=== PATIENT | male | born 1940 | race Caucasian/White ===

== ENCOUNTER → 2017-11-06 | Outpatient (CLI) | payer OTHER, BC ==
[~2017-11-06] MED LIST: ADULT LOW DOSE81 MG PO; ASPIR 8181 MG PO; ATENOLOL 100MG100 MG PO; CARDIZEM CD180 MG PO; CELEXA10 MG PO; COUMADIN 5 MG TA5 M1 PO; COUMADIN 5 MG TA5 MG PO; COZAAR 25 MG TA25 M2 PO; DIGOXIN250 MCG PO; DILTIAZEM ER120 M1 PO; DILTIAZEM ER240 M1 PO; EFFIENT10 MG PO; GLUCOPHAGE500 MG PO; HYTRIN PO; KLOR-CON 1010 MEQ PO; LANOXIN 0.250.25 M1 PO; LASIX 40 MG TAB40 M2 PO; LIPITOR 20 MG T20 M1 PO; LOPRESSOR; LOPRESSOR100 MG; LOPRESSOR100 MG PO; METFORMIN 500500 MG PO; METOPROLOL TAR100 MG PO; OMEPRAZOLE20 MG PO; PRAVACHOL 20 MG20 M1 PO; PRILOSEC2.5 MG PO; PRILOSEC40 MG PO; TOPROL XL100 MG PO; XANAX 0.25 MG0.25 MG PO
--- NOTE | ~2017-11-06 | 2DMMODE ---
[facility] [address] [place] [address] 2 D/M-MODE ECHOCARDIOGRAM Name: ARYA BARROS Jonathan Room #: REG [facility]#: [id number] Admission: 11/06/17 Attend Phys: Luis Antonio Ace Discharge: Date of : 38 Date of Service: 11/06/17 1334 Report #: [id number] THIS REPORT FOR: //name// APPROVED REPORT Study performed: 11/06/2017 11:14:42 EXAM: Comprehensive 2D, Doppler, and color-flow Echocardiogram Patient Location: Out-Patient Room #: Echo lab 2 Status: routine BSA: 2.11 HR: 84 bpm BP: 104/76 mmHg Other Information Study Quality: Good Indications Atrial Fibrillation Pacemaker 2D Dimensions RVDd: 52.60 mm LVEF(%): 50.31 (>50%) IVSd: 10.73 (7-11mm) LVOT Diam: 22.33 (18-24mm) LVDd: 46.40 mm PWd: 10.44 (7-11mm) Ascending Ao: 29.03 (22-36mm) LVDs: 34.56 (25-40mm) Aortic Root: 29.15 mm IVC: 22.00 mm Kingsley's LVEF: 50.31 % Volumes Left Atrial Volume (Systole) Single Plane 4CH: 97.88 mL Single Plane 2CH: 93.87 mL LA ESV Index: 53.00 mL/m2 Aortic Valve AoV Peak Star.: 1.35 m/s AO Peak Gr.: 7.41 mmHg LVOT Max P.52 mmHg LVOT Max V: 0.61 m/s CHRISTEN Vmax: 1.77 cm2 Pulmonary Valve PV Peak Star.: 0.81 m/s PV Peak Gr.: 2.61 mmHg ND End Vmax: 1.24 m/s [facility] [employer] [place] [address] 2 D/M-MODE ECHOCARDIOGRAM Name: ARYA BARROS Room #: [facility]#: [id number] Admission: 11/06/17 Attend Phys: Luis [facility] Discharge: Date of : 38 Date of Service: 11/06/17 1334 Report #: [id number] Tricuspid Valve TR Peak Star.: 2.42 m/s TR Peak Gr.: 23.43 mmHg PA Pressure: 33.00 mmHg Left Ventricle The left ventricle is normal size. There is global hypokinesis of the left ventricle. There is normal left ventricular wall thickness. Left ventricular systolic function is moderately decreased. LVEF is 35%. This study is not technically sufficient to allow evaluation of the LV diastolic function due to atrial fibrillation. Right Ventricle Right ventricle is dilated. Right ventricular systolic function is mildly reduced. Device lead is present in the right ventricle. Atria Left atrium is dilated. Right atrium is dilated. Device lead is present in the right atrium. Aortic Valve Trileaflet aortic valve, mildly calcified No aortic regurgitation is present. There is no aortic valvular stenosis. Mitral Valve The mitral valve is normal in structure. Mild-moderate mitral regurgitation. Tricuspid Valve The tricuspid valve is normal in structure. There is moderate tricuspid regurgitation. Estimated PAP 33 mmHg. There is mild pulmonary hypertension. Pulmonic Valve The pulmonary valve is normal in structure. Mild pulmonic regurgitation. Great Vessels The aortic root is normal in size. IVC is dilated and collapses >50% with inspiration. Pericardium There is no pericardial effusion. <Conclusion> [facility] [address] [place] [address] 2 D/M-MODE ECHOCARDIOGRAM Name: ARYA BARROS Room #: [facility]#: [id number] Admission: 11/06/17 Attend Phys: Luis Antonio Ace Discharge: Date of : 38 Date of Service: 11/06/17 1334 Report #: [id number] Left ventricular systolic function is moderately decreased. LVEF is 35%. Right ventricle is dilated and hypokinetic. Both atria are dilated. Wires in right heart Trileaflet aortic valve, mildly calcified. No aortic regurgitation or stenosis The mitral valve is normal in structure. Mild-moderate mitral regurgitation. There is moderate tricuspid regurgitation. Estimated pulmonary artery pressure of 33 mmHg. There is no pericardial effusion. <ELECTRONICALLY SIGNED> By: Ramón Vu MD, FAC 11/06/17 1334 1334 1334 Ramón Vu MD, FAC /INF
== END ==
LOC: CV 06:45
DX: I08.1 Rheumatic disorders of both mitral and tricuspid valves (principal); I27.20 Pulmonary hypertension, unspecified; Z95.0 Presence of cardiac pacemaker

== ENCOUNTER 2017-11-15 06:41 | Observation (INO) | payer OTHER, BC ==
[~2017-11-15] VITALS: Ht 175.3 cm; Wt 99.3 kg
--- NOTE | ~2017-11-15 | P ---
[facility] [address] [place] [address] PROCEDURE REPORT Name: JOSE BARROS Room #: 201-P [facility] M.R.#: [id number] Admission: 11/15/17 Attend Phys: Luis Antonio Ace MD Discharge: 11/16/17 Date of : 38 Report #: [id number] THIS REPORT FOR: //name// CC: Tomas Ace PREOPERATIVE DIAGNOSIS: Nonischemic cardiomyopathy. PROCEDURES PERFORMED: Upgrade from a dual chamber pacemaker to a biventricular ICD with addition of an ICD lead in the left ventricular lead. HISTORY: The patient is a 77-year-old with history of permanent atrial fibrillation status post prior pacemaker implantation, who has a nonischemic cardiomyopathy, EF of 35% and class 2 heart failure symptoms, who will be upgraded to a biventricular ICD with plans of performing an AV node in the near future after he is healed from this procedure. ANESTHESIA: The patient underwent MAC anesthesia with no anesthesia related complications. DESCRIPTION OF PROCEDURE: The patient underwent informed consent. We discussed the details of the procedure including the risks, which include but not limited to bleeding, infection, vascular damage, cardiac perforation, pneumothorax. He understood these risks and is willing to proceed. As such, he was brought to the EP laboratory in fasting and unsedated state, prepped and draped in a sterile fashion, received IV antibiotics prior to initiation of the procedure and underwent a venogram showing patency of left axillary vein. Next, lidocaine was injected at the prior incision site. An incision was made, pocket was opened and then access was obtained twice to left axillary vein using the extrathoracic approach with sheaths positioned using the modified Seldinger technique. Under fluoroscopy, a single chamber ICD lead was placed in the right ventricular apex with adequate pacing and sensing thresholds and this lead was sutured to the prepectoral fascia. Next, I placed a guide sheath and obtained access to the coronary sinus. A venogram was performed showing that there is a nice posterolateral branch. A quadripolar lead was positioned into this vessel without complications. The sheath was split and lead was sutured to the prepectoral fascia. The old device was discarded and the leads were connected to the biventricular ICD. The new ICD that was implanted was a [employer] model #[id number], serial #[id number]. The old RV pace sense lead was capped and placed in the pocket. The pocket was irrigated with vancomycin and then closed in 3 layers and surgical glue was placed to the skin layer. The patient awoke neurologically and hemodynamically intact. No complications and no significant bleeding. The removed pacemaker was a Medtronic model RVDR01, serial #[id number]. The atrial lead was a Medtronic model #5076, serial # [id number]. This lead was implanted on 02/25/2008 and shows atrial fibrillation with a pacing impedance of 400 ohms and [facility] [address] [place] [address] PROCEDURE REPORT Name: JOSE BARROS Room #: 201-P [facility]#: [id number] Admission: 11/15/17 Attend Phys: Luis Antonio Ace MD Discharge: 11/16/17 Date of : 38 Report #: [id number] P waves of 1 millivolt. The old RV pace sense lead was a Medtronic model #5076, serial #[id number], originally implanted on 02/25/2008. The newly implanted [employer] ICD lead was model #7122Q, 65 cm, serial #[id number]. R-wave 9.4 millivolts, pacing impedance of 550 ohms and pacing threshold 1 volt at 0.5 milliseconds. The new LV lead was a [employer] model #1458Q, 86 cm, serial #[id number] with a pacing impedance of 790 ohms and pacing threshold 1.25 volts at 0.5 milliseconds. The device was programmed to the VVIR 70 mode. The VT zone was set at 180-220 beats per minute with ATP while charging followed by max output shocks and the VF zone was set at greater than 220 beats per minute. CONCLUSIONS: 1. Successful upgrade to biventricular ICD. 2. Satisfactory atrial right ventricular and left ventricular pacing and sensing thresholds. By: 1443 34 Luis Antonio Ace MD /nt
[2017-11-15] MEDS ORDERED: COZAAR 25 MG TA25 M1 PO (07:04)
[2017-11-15] MEDS ORDERED: GLIMEPIRIDE4 MG PO (07:04)
[2017-11-15] MEDS ORDERED: TOPROL XL100 MG PO (07:05)
[2017-11-15] MEDS ORDERED: PRAVACHOL40 MG PO (07:06)
[2017-11-15] MEDS ORDERED: HYTRIN 2MG CAPSU2 M1 PO (07:07)
[2017-11-15 07:18] VITALS: BP 146/99
[2017-11-15 07:19] LABS: ABSOLUTE NEUTROPHILS 4.5 thou/uL (1.4-8.2); BASOPHILS 1.2 % (0.0-2.0); HEMATOCRIT 44.9 % (42.0-52.0); HEMOGLOBIN 15.5 gm/dL (14.0-18.0); LYMPHOCYTES 25.1 % (24.0-44.0); MCH 30.6 pg (26.0-34.0); MCHC 34.5 g/dL (28.0-37.0); MCV 88.8 fL (80.0-100.0); MONOCYTES 10.7 % (1.0-8.0); PLATELET COUNT 184 thou/uL (150-400); RBC 5.05 mil/uL (4.50-6.00); RDW 13.8 % (10.5-14.5); WBC 7.7 thou/uL (4.0-11.0)
[2017-11-15 07:30] LABS: CALCIUM 8.9 mg/dL (8.5-10.1); CREATININE 1.2 mg/dL (0.7-1.3)
[2017-11-15 07:31] LABS: INR 1.1; PROTIME 11.4 Seconds (9.3-11.4)
[2017-11-15 07:34] LABS: ALBUMIN 3.9 g/dL (3.4-5.0); TOTAL BILIRUBIN 1.3 mg/dL (<0.1-1.0); TOTAL PROTEIN 7.6 g/dL (6.4-8.2)
[2017-11-15 14:59] VITALS: BP 122/80
[2017-11-15 19:09] VITALS: BP 137/86
[2017-11-16] MEDS ORDERED: CARVEDILOL12.5 MG PO ×2 (00:18→11:12)
[2017-11-16 04:01] VITALS: BP 128/60
[2017-11-16 07:53] VITALS: BP 129/81
[2017-11-16 10:49] VITALS: BP 129/87
== END 2017-11-16 13:45 | disposition home or self-care (01) ==
LOC: CATH 06:41 → 2N 06:50 → CATH 14:10 → ENTRNSPT 11-16 11:52 → EDTRNSPTSTS 11-16 11:56 → 2N 11-16 13:45
PROVIDERS: Internal Medicine Cardiovascular Disease
DX: I48.0 Paroxysmal atrial fibrillation (principal); I25.5 Ischemic cardiomyopathy; I42.9 Cardiomyopathy, unspecified; I48.2 Chronic atrial fibrillation; G47.33 Obstructive sleep apnea (adult) (pediatric); E11.9 Type 2 diabetes mellitus without complications; E78.00 Pure hypercholesterolemia, unspecified; I49.5 Sick sinus syndrome; M19.90 Unspecified osteoarthritis, unspecified site; Z98.890 Other specified postprocedural states; Z95.0 Presence of cardiac pacemaker

== ENCOUNTER → 2018-01-17 | Outpatient (CLI) | payer OTHER, BC ==
[~2018-01-17] VITALS: Ht 175.3 cm; Wt 94.3 kg
[~2018-01-17] MED LIST changes: +CARVEDILOL12.5 MG PO; +COUMADIN 4 MG TA4 M1 PO; +COZAAR 25 MG TA25 M1 PO; +GLIMEPIRIDE1 MG PO; +GLIMEPIRIDE4 MG PO; +HYTRIN 2MG CAPSU2 M1 PO; +METFORMIN HCL500 MG PO; +PRAVACHOL40 MG PO
--- NOTE | ~2018-01-17 | P ---
[facility] [place] [address] [place] [address] PROCEDURE REPORT Name: JOSE BARROS Room #: REG [facility]#: [id number] Admission: 01/17/18 Attend Phys: Luis Antonio Ace MD Discharge: Date of : 38 Report #: [id number] THIS REPORT FOR: //name// CC: Tomas Ace PREOPERATIVE DIAGNOSIS: Atrial fibrillation. POSTOPERATIVE DIAGNOSIS: Atrial fibrillation. HISTORY: The patient is a gentleman with history of permanent atrial fibrillation, difficult to control ventricular rates as well as nonischemic cardiomyopathy, status post recent implantation of Bi-V ICD. He is here for AV node ablation. ANESTHESIA: The patient underwent MAC anesthesia with no anesthesia-related complications. DESCRIPTION OF PROCEDURE: The patient underwent informed consent as to the details of the procedure including the risks, which include but not limited to bleeding, vascular damage, cardiac perforation as well as stroke or AL. He understood these risks and is willing to proceed. As such, the patient was brought to the EP laboratory in a fasting and sedated state, prepped and draped in a sterile fashion. His ICD was reprogrammed. His therapies were disabled. His lower rate was set to 40. Next, I obtained access to the right femoral vein x 1 placing a short sheath and upsizing this to a SR0 sheath using the modified Seldinger technique. Under fluoroscopy, I placed an 8 mm Biosense Biggs ablation catheter into the right ventricle. The AV node was ablated, which resulted in complete heart block. The rhythm was monitored for a period of 30 minutes and there was no return of conduction. His defibrillator was programmed back on to its original therapies. There were no complications and no significant bleeding. CONCLUSION: Successful AV node ablation. By: 1634 2039 Luis Antonio Ace MD /nt
[2018-01-17 10:25] LABS: ABSOLUTE NEUTROPHILS 5.7 thou/uL (1.4-8.2); EOSINOPHILS 2.2 % (0.0-3.0); HEMATOCRIT 42.8 % (42.0-52.0); HEMOGLOBIN 14.7 gm/dL (14.0-18.0); LYMPHOCYTES 19.3 % (24.0-44.0); MCH 31.2 pg (26.0-34.0); MCHC 34.4 g/dL (28.0-37.0); MCV 90.5 fL (80.0-100.0); PLATELET COUNT 182 thou/uL (150-400); POLYS 70.5 % (36.0-66.0); RBC 4.73 mil/uL (4.50-6.00); RDW 13.8 % (10.5-14.5); WBC 8.1 thou/uL (4.0-11.0)
[2018-01-17 10:36] VITALS: BP 106/68
[2018-01-17 10:37] LABS: CREATININE 1.1 mg/dL (0.7-1.3); POTASSIUM 4.1 mmol/L (3.5-5.1)
[2018-01-17 10:43] LABS: ALBUMIN 3.6 g/dL (3.4-5.0); TOTAL PROTEIN 7.4 g/dL (6.4-8.2)
[2018-01-17 10:46] LABS: APTT 32.9 Seconds (24.5-32.8); INR 1.4
== END | disposition home or self-care (01) ==
LOC: CATH 09:39
PROVIDERS: Internal Medicine Cardiovascular Disease
DX: I48.91 Unspecified atrial fibrillation (principal); I10 Essential (primary) hypertension; I25.10 Atherosclerotic heart disease of native coronary artery without angina pectoris; E11.9 Type 2 diabetes mellitus without complications; I42.9 Cardiomyopathy, unspecified; G47.33 Obstructive sleep apnea (adult) (pediatric); E78.5 Hyperlipidemia, unspecified; Z79.01 Long term (current) use of anticoagulants; Z95.5 Presence of coronary angioplasty implant and graft; Z79.82 Long term (current) use of aspirin; Z79.899 Other long term (current) drug therapy; Z98.890 Other specified postprocedural states
CPT/HCPCS: 62110; 62900; 70005

== ENCOUNTER 2018-07-12 17:21 | Emergency (ER) | payer OTHER, BC ==
[~2018-07-12] VITALS: Ht 175.3 cm; Wt 97.5 kg
--- NOTE | ~2018-07-12 | HC ---
[facility] [place] [address] [address] [place] [address] CONSULTATION Name: ARYA BARROS Room #: DEP [facility]#: [id number] Admission: 07/12/18 Attend Phys: Discharge: 07/12/18 Date of : 38 Report #: [id number] THIS REPORT FOR: //name// CC: Tomas Morlaez MD [facility] DATE OF SERVICE: 07/12/2018 PRIMARY CARE PHYSICIAN: Tomas Krishnan M.D. HISTORY OF PRESENT ILLNESS: The patient is a 77-year-old male who was eating a piece of pork earlier this evening and since that time has not been able to swallow his saliva and initially evaluated in the Emergency Room, continuing to spit up and had some mild shortness of breath. He apparently has a history of esophageal stricture and has been dilated 3-4 times in the past. He states the last time has been many years ago. He denies any significant heartburn. He does report some mild odynophagia. He was given a GI cocktail in the Emergency Room approximately 20 minutes before I arrived and since that time, he has not been spitting up his own saliva. I therefore gave him a cup of water and he was able to swallow that without difficulty without regurgitation. Therefore, it appears that the food bolus has passed on its own. I explained to the patient that since he is on Coumadin, his INR is 2.5, proceeding with an endoscopy at this time would not be necessary as it appears it is passed. I would rather do this as an outpatient in the future when he is off Coumadin and we can proceed with dilation at that time. PAST MEDICAL HISTORY: Atrial fibrillation. He has a pacemaker, history of coronary artery disease with stent placement, diabetes type 2 and osteoarthritis. MEDICATIONS: Aspirin 81 mg, Lanoxin, Cardizem, Lasix, Cozaar, Glucophage, Toprol, , Pravachol and Coumadin. REVIEW OF SYSTEMS: As per HPI. ALLERGIES: To PERCOCET, PENICILLIN and CODEINE. SOCIAL HISTORY: Denies any tobacco or alcohol use. FAMILY HISTORY: Negative for colon cancer. PHYSICAL EXAMINATION: VITAL SIGNS: Temperature is 98.8, pulse 70, blood pressure is 148/82, respiratory rate is 15 and O2 sats are 98% on room air. [facility] [address] [place] [address] CONSULTATION Name: ARYA BARROS Room #: [facility]#: [id number] Admission: 07/12/18 Attend Phys: Discharge: 07/12/18 Date of : 38 Report #: [id number] GENERAL: He is alert and oriented x 3, in no acute distress. HEENT: Sclerae nonicteric. Oropharynx clear. NECK: Supple. CARDIOVASCULAR: Regular rate. CHEST: Clear to auscultation anteriorly bilaterally. ABDOMEN: Soft. He is nontender and nondistended. Normoactive bowel sounds. EXTREMITIES: No cyanosis, clubbing or edema. LABORATORY DATA: INR is apparently 2.5. No other new labs available. RADIOLOGICAL DATA: X-ray of the neck on today, no opaque foreign body was identified. Chest x-ray: No acute cardiopulmonary abnormalities noted. ASSESSMENT AND PLAN: 1. Food impaction and it appears this has passed as described above. The patient is no longer having difficulty swallowing liquids at this time. He is not feeling any pressure. He is not having any regurgitation as he was on presentation. Again, I explained to the patient I would prefer proceeding with an upper endoscopy later off Coumadin when dilation could be performed. Advise the patient to chew his food thoroughly, may need to consider proton pump inhibitor therapy depending on upper endoscopy findings in the future. Thank you for allowing me to participate in his care. By: 09 0339 Ruslan Black MD /nt
[2018-07-12 20:14] VITALS: BP 141/81
== END 2018-07-12 20:21 | disposition home or self-care (01) ==
LOC: ER 17:21
DX: T18.128A Food in esophagus causing other injury, initial encounter (principal); I48.91 Unspecified atrial fibrillation; E11.9 Type 2 diabetes mellitus without complications; G47.33 Obstructive sleep apnea (adult) (pediatric); I25.10 Atherosclerotic heart disease of native coronary artery without angina pectoris; Z88.1 Allergy status to other antibiotic agents; Z88.0 Allergy status to penicillin; Z88.5 Allergy status to narcotic agent; X58.XXXA Exposure to other specified factors, initial encounter; Y93.89 Activity, other specified; Y92.89 Other specified places as the place of occurrence of the external cause; Y99.8 Other external cause status

== ENCOUNTER → 2018-09-23 | Outpatient (CLI) | payer OTHER, BC ==
[~2018-09-23] VITALS: Ht 175.3 cm; Wt 95.7 kg
[~2018-09-23] MED LIST changes: +DILTIAZEM HCL90 MG PO
--- NOTE | 2018-09-23 17:56 | P ---
[facility] [place] [address] [place] [address] PROCEDURE REPORT Name: ARYA BARROS Room #: REG [facility]#: [id number] Admission: 09/23/18 ������������������ Attend Phys: Willie Villar MD Discharge: ������������������ Date of : 39 Report #: [id number] THIS REPORT FOR: //name// CC: SELINA Villar BRIEF HISTORY: The patient is a 77-year-old male with recent history of black stools on Coumadin. PREOPERATIVE DIAGNOSIS: Gastrointestinal bleeding with melanotic stools. POSTOPERATIVE DIAGNOSES: 1. Multiple colon polyps. 2. Internal hemorrhoids. MEDICATIONS: Deep sedation with propofol per anesthesia. SPECIMENS: 1. Polyp at 70 cm. 2. Polyp, cecum. 3. Polyp, ascending colon. 4. Polyps x 2, mid ascending colon. 5. Polyp at 80 x 2. ESTIMATED BLOOD LOSS: 3 mL. PROCEDURE: Colonoscopy to cecum and terminal ileum with snare polypectomy and biopsy. FINDINGS: Prior to propofol sedation, procedure of colonoscopy discussed with the patient as well as potential risks and its complications. He indicates he understands and desires to proceed. DESCRIPTION OF PROCEDURE: With the patient in the lateral decubitus position, digital examination was completed, which revealed no abnormalities. Subsequently, the Olympus video colonoscope was introduced in the rectum, advanced under direct vision. As we advanced the scope at 80 cm, a 5-7 mm sessile polyp was seen and removed by cold snare polypectomy. The scope was further dragged into the cecum, which was identified by the ileocecal valve and the appendiceal orifice. Due to looping, however, I could not advance the scope across the ileocecal valve into the cecum. At that point, the scope was slowly withdrawn and careful circumferential views were obtained. As we withdrew the scope, a diminutive polyp was seen in the cecum, removed with biopsy forceps. Scope was further withdrawn and in the very proximal ascending colon, a 6-7 mm [facility] [address] [place] [address] PROCEDURE REPORT Name: ARYA BARROS Room #: REG [facility]#: [id number] Admission: 09/23/18 ������������������ Attend Phys: Willie Villar MD Discharge: ������������������ Date of : 38 Report #: [id number] sessile polyp was seen and removed by cold snare polypectomy and recovered. Upon further withdrawal of the scope, in the mid ascending colon, 2 diminutive polyps were seen and removed with biopsy forceps. Scope was further withdrawn and at about 80 cm upon withdrawal, 2 diminutive polyps were seen and removed by biopsy. Scope was further withdrawn. No additional abnormalities were seen. Scope was withdrawn in the rectum. No abnormalities were seen. However, upon retroflexion, moderate internal hemorrhoids were seen. Scope was withdrawn. The patient tolerated the procedure well. CONDITION OF THE PATIENT UPON DISCHARGE: Following the follow procedure, the patient drowsy, aroused, conversant discharged home when fully ambulatory. INSTRUCTIONS TO THE PATIENT AND FAMILY AT THE TIME OF DISCHARGE: The patient had multiple polyps. All of them were small. However, some of the larger ones could have caused some GI bleed on Coumadin. We will follow up on the path. However, in view of multiple polyps, suggest return in 3 years for followup colonoscopy. He may resume his Coumadin under the direction of Dr. Moralez starting tomorrow. Please also see upper endoscopy report as he did have erosions associated with hiatus hernia, which may have been another source for blood loss. Withdrawal time from the cecum was 17 minutes and 19 seconds. ��������������������������������������������� <ELECTRONICALLY SIGNED> ���������������������������������������� By: Willie Villar MD ��������������������������������������������� 09/23/18 1756 1215 1300 Willie Villar MD /nt
--- NOTE | 2018-09-23 17:56 | P ---
[facility] [place] [address] [address] [place] [address] PROCEDURE REPORT Name: ARYA BARROS Room #: REG [facility]#: [id number] Admission: 09/23/18 ������������������ Attend Phys: Willie Villar MD Discharge: ������������������ Date of : 39 Report #: [id number] THIS REPORT FOR: //name// CC: Tomas Moralez MD [facility] Willie Villar DATE OF SERVICE: 09/23/2018 BRIEF HISTORY: The patient is a 77-year-old male who is on Coumadin for atrial fibrillation. He had a food bolus obstruction of the esophagus in July of this year; however, he was not dilated as he was fully anticoagulated at that time. He also, recently on Coumadin, developed black stools. His hemoglobin was normal and in the office, they were brown, but Hemoccult positive. PREOPERATIVE DIAGNOSES: 1. Solid food dysphagia. 2. Gastrointestinal bleeding, on Coumadin. MEDICATIONS: Deep sedation with propofol per anesthesia. SPECIMEN: Biopsies of gastritis. ESTIMATED BLOOD LOSS: 3 mL. PROCEDURE: EGD with biopsy and Tavares dilation. FINDINGS: Prior to propofol sedation, procedure of upper endoscopy and dilation was reviewed with the patient as well as potential risks and its complications. He indicates he understands and desires to proceed. DESCRIPTION OF PROCEDURE: With the patient in left lateral decubitus position, the Olympus video endoscope was inserted in the cervical esophagus under direct vision without difficulty. Examination of this organ through its entire length revealed normal esophageal mucosa down the squamocolumnar junction. At the squamocolumnar junction, a moderate Schatzki ring was seen. It was not ulcerated or eroded. There is no evidence of Morales mucosa. The scope passed easily through the ring into a moderately sized hiatus hernia. It measured about 5-6 cm in length. The mucosa within the hernia was normal. No bleeding lesions were seen. However, when we advanced the scope into the stomach and retroflexed, we could see linear erosions on the gastric side of the hiatus hernia. There is no evidence of bleeding. Ulcers were not seen. Mass lesion was not seen. Examination of distal stomach revealed patchy erythematous changes, but no ulcers or erosions. The pylorus, duodenal bulb, and postbulbar [address] [address] PROCEDURE REPORT Name: ARYA BARROS Room #: REG [facility]#: [id number] Admission: 09/23/18 ������������������ Attend Phys: Willie Villar MD Discharge: ������������������ Date of : 39 Report #: [id number] sweep were inspected and noted to be unremarkable. At that point, the scope was slowly withdrawn and careful circumferential views confirmed the above findings. The patient tolerated the procedure well. Subsequently, he was dilated with passage of 50-Vietnamese Tavares dilator. There was no resistance. CONDITION OF THE PATIENT UPON DISCHARGE: Following procedure, the patient drowsy and prepared for colonoscopy. INSTRUCTIONS TO THE PATIENT AND FAMILY AT THE TIME OF DISCHARGE: We will follow up on biopsies obtained today. However, due to his black stools and erosions and need for anticoagulation, we will place him on omeprazole 40 mg daily. As for his dysphagia, he is to return on an as needed basis for dilation due to symptoms of dysphagia. ��������������������������������������������� <ELECTRONICALLY SIGNED> ���������������������������������������� By: Willie Villar MD ��������������������������������������������� 09/23/18 1756 1132 1213 Willie Villar MD /nt
--- NOTE | 2018-09-25 10:07 | PATH ---
[facility] [place] [address] PATHOLOGY RPT PROCEDURE Name: MICHAEL GARCIA Room #: REG FRANCIS ChaoRemediosEfra.#: [id number] ������������������ Admission: 09/23/18 ������������������ Date of : 38 Discharge: Report #: [id number] Path Case #: [id number] [facility] Accession Number: [id number] . 01 Material submitted: . PART A: BX GASTRITIS R/O H PYLORI PART B: POLYP AT 70CM PART C: BX OF POLYP AT CECUM PART D: POLYP AT ASCENDING COLON PART E: BX POLYP AT MID ASCENDING COLON X2 PART F: BX POLYP AT 80 CM . 01 Clinical history: . Pre-OP DX: Blood in stool, GERD, dysphagia Post-OP DX: Gastritis, colon polyps, hiatal hernia, hemorrhoids . 02 Diagnosis: A. Gastric mucosa, gastritis rule out H. pylori, endoscopic biopsy: - Mild reactive gastropathy. - Negative for intestinal metaplasia or atrophy. - Negative for Helicobacter pylori (properly controlled immunohistochemical stain performed). . B. Polyp, at 70 cm, endoscopic biopsy: - Tubular adenoma. - Negative for high grade dysplasia. . C. Polyp, at cecum, endoscopic biopsy: - Hyperplastic polyp. - Negative for dysplasia. . D. Polyp, at ascending colon, endoscopic biopsy: - Tubular adenoma. - Negative for high grade dysplasia. . E. Polyp x 2, at mid ascending colon, endoscopic biopsy: - Tubular adenoma identified in multiple fragments. - Negative for high grade dysplasia. . F. Polyp x 2, at 80 cm, endoscopic biopsy: - Tubular adenoma identified in multiple fragments. - Negative for high grade dysplasia. (IUV/db; 09/24/2018) LBQ/09/24/2018 . 02 Electronically signed: . Julieth Calix MD, Pathologist [address] [address] PATHOLOGY RPT PROCEDURE Name: MICHAEL GARCIA Room #: REG FRANCIS Prince#: [id number] ������������������ Admission: 09/23/18 ������������������ Date of : 39 Discharge: Report #: [id number] Path Case #: [id number] [facility]- [id number] . 01 Gross description: . A. Received in formalin labeled "Michael Garcia, BX gastritis, rule out H. pylori," are 4 segments of reich soft tissue measuring 0.9 x 0.6 x 0.2 cm in aggregate dimensions and ranging from 0.2 to 0.6 cm in maximum dimension. The specimen is submitted entirely in cassette A1. . B. Received in formalin labeled "Michael Garcia, polyp at 70 cm," is a 0.7 x 0.3 x 0.3 cm polypoid piece of reich soft tissue. The margin is inked and the specimen is sectioned perpendicular to the margin and entirely submitted in cassette B1. . C. Received in formalin labeled "Michael Garcia, BX of polyp at cecum," are 5 segments of reich soft tissue measuring 1.1 x 0.8 x 0.2 cm in aggregate dimensions and ranging from 0.3 to 0.5 cm in maximum dimension. The specimen is submitted entirely in cassette C1. . D. Received in formalin labeled "LightMichael, polyp at ascending colon," is a 0.7 x 0.5 x 0.5 cm polypoid piece of reich soft tissue. The margin is inked and the specimen is sectioned perpendicular to the margin and entirely submitted in cassette D1. . E. Received in formalin labeled "LightMichael, BX polyp at mid ascending colon x2," are 2 segments of reich soft tissue measuring 0.9 x 0.2 x 0.2 cm in aggregate dimensions and ranging from 0.4 to 0.5 cm in maximum dimension. The specimen is submitted entirely in cassette E1. . F. Received in formalin labeled "LightMichael, BX polyp at 80 cm x2," are 3 segments of reich soft tissue measuring 1.1 x 0.6 x 0.2 cm in aggregate dimensions and ranging from 0.4 to 0.6 cm in maximum dimension. The specimen is submitted entirely in cassette F1. (TSD; 09/23/2018) TOB/TOB . 02 Pathologist provided ICD-10: K31.9, D12.6, K63.5, D12.2 . 02 CPT . 849557, 072428, 895842, 235947, 599196, 453376, S60206 Specimen Comment: A courtesy copy of this report has been sent to Specimen Comment: [phone], , . Specimen Comment: Report sent to ,DR WEAVER / DR XIONG Specimen Comment: A duplicate report has been generated due to demographic updates. Performed at: [address] [place] [address] [facility] [address], [place] Seth[place], [place] [id number] [facility] [address] [place] [address] PATHOLOGY RPT PROCEDURE Name: MICHAEL GARCIA Room #: REG FRANCIS Prince#: [id number] ������������������ Admission: 09/23/18 ������������������ Date of : 39 Discharge: Report #: [id number] Path Case #: [id number] MD Lei Ramirez MD Phone: [phone] Performed at: [address] [address] [place] [id number] MD Julieth Calix MD Phone: [phone]
== END | disposition home or self-care (01) ==
LOC: GI 08:50
DX: D12.4 Benign neoplasm of descending colon (principal); K63.5 Polyp of colon; D12.2 Benign neoplasm of ascending colon; K29.70 Gastritis, unspecified, without bleeding; K31.9 Disease of stomach and duodenum, unspecified; K22.2 Esophageal obstruction; K44.9 Diaphragmatic hernia without obstruction or gangrene; Z68.31 Body mass index [BMI] 31.0-31.9, adult; I10 Essential (primary) hypertension; E78.5 Hyperlipidemia, unspecified; Z95.5 Presence of coronary angioplasty implant and graft; I49.5 Sick sinus syndrome; K21.9 Gastro-esophageal reflux disease without esophagitis; I48.91 Unspecified atrial fibrillation; E11.9 Type 2 diabetes mellitus without complications; G47.33 Obstructive sleep apnea (adult) (pediatric); Z98.890 Other specified postprocedural states
CPT/HCPCS: 62110; 62900

== ENCOUNTER → 2019-09-02 | Outpatient (CLI) | payer OTHER, BC | LOC: SJCVC 08:33 | DX: Z45.02 Encounter for adjustment and management of automatic implantable cardiac defibrillator (principal); R94.31 Abnormal electrocardiogram [ECG] [EKG]; I45.4 Nonspecific intraventricular block; I48.91 Unspecified atrial fibrillation; I25.5 Ischemic cardiomyopathy; I25.10 Atherosclerotic heart disease of native coronary artery without angina pectoris; E11.9 Type 2 diabetes mellitus without complications; E78.00 Pure hypercholesterolemia, unspecified; I10 Essential (primary) hypertension; G47.33 Obstructive sleep apnea (adult) (pediatric); Z96.653 Presence of artificial knee joint, bilateral; Z79.899 Other long term (current) drug therapy ==

== ENCOUNTER 2019-11-22 20:31 | Inpatient (IN) | payer OTHER, BC ==
[~2019-11-22] VITALS: Ht 175.3 cm; Wt 98.9 kg
[2019-11-22 20:34] VITALS: BP 116/68
[2019-11-22] MEDS ORDERED: LANOXIN 0.25M0.25 M1 PO (20:50)
[2019-11-22] MEDS ORDERED: CARVEDILOL25 MG PO (20:53)
[2019-11-22 20:58] LABS: HEMATOCRIT 29.8 % (42.0-52.0); HEMOGLOBIN 9.9 gm/dL (14.0-18.0); MCH 27.3 pg (26.0-34.0); MCHC 33.1 g/dL (28.0-37.0); MCV 82.3 fL (80.0-100.0); PLATELET COUNT 293 thou/uL (150-400); RBC 3.62 mil/uL (4.50-6.00); RDW 15.7 % (10.5-14.5); WBC 6.8 thou/uL (4.0-11.0)
[2019-11-22 21:07] LABS: ANION GAP 9 mmol/L (7-16); BUN 36 mg/dL (7-18); CALCIUM 8.8 mg/dL (8.5-10.1); CHLORIDE 102 mmol/L (98-107); CO2 27 mmol/L (21-32); CREATININE 1.4 mg/dL (0.7-1.3); GLUCOSE 288 mg/dL (74-106); POTASSIUM 4.7 mmol/L (3.5-5.1); SODIUM 138 mmol/L (136-145)
[2019-11-22] MEDS ORDERED: PROSCAR 5MG TABL5 M1 PO (21:10)
[2019-11-22] MEDS ORDERED: AMITRIPTYLINE H50 M3 PO (21:10)
[2019-11-22] MEDS ORDERED: METFORMIN PO (21:11)
[2019-11-22] MEDS ORDERED: TORSEMIDE20 MG PO (21:14)
[2019-11-22] MEDS ORDERED: HYTRIN 2MG CAPSU2 M1 PO (21:14)
[2019-11-22 21:15] LABS: TROPONIN-I <0.06 ng/mL (<0.06)
[2019-11-22] MEDS ORDERED: JANTOVEN4 MG PO (21:15)
[2019-11-22 21:16] LABS: URINE BILIRUBIN NEGATIVE (Negative); URINE BLOOD NEGATIVE (Negative); URINE CLARITY CLEAR; URINE COLOR YELLOW; URINE GLUCOSE-RANDOM* 3+ (Negative); URINE KETONES NEGATIVE (Negative); URINE LEUKOCYTES-REFLEX NEGATIVE (Negative); URINE NITRITE-REFLEX NEGATIVE (Negative); URINE PROTEIN (DIPSTICK) NEGATIVE (Negative); URINE SPECIFIC GRAVITY 1.025 (1.005-1.035); URINE UROBILINOGEN 0.2 E.U./dl (0.2-1.0)
[2019-11-22] MEDS ORDERED: FLOMAX0.4 MG PO (21:16)
[2019-11-22 21:31] LABS: ABSOLUTE NEUTROPHILS 4.1 thou/uL (1.4-8.2); ANISOCYTOSIS 1+; POLYCHROMASIA OCCASIONAL
[2019-11-23] VITALS (28 sets, daily range): BP systolic 86–139; BP diastolic 36–68
[2019-11-23 00:07] LABS: BE(vivo) -10.8 mmol/L (-2 to +3); PO2 81.5 mmHg (80.0-100.0); sO2 89.8 % (92.0-98.0)
[2019-11-23 00:09] LABS: PCO2 73.8 mmHg (35.0-45.0); pH 7.051 (7.360-7.450)
[2019-11-23 01:44] LABS: BE(vivo) -5.8 mmol/L (-2 to +3); HCO3 19.9 mmol/L (22.0-26.0); PO2 233.7 mmHg (80.0-100.0); sO2 99.4 % (92.0-98.0)
[2019-11-23 01:46] LABS: pH 7.315 (7.360-7.450)
[2019-11-23 04:20] LABS: HEMOGLOBIN 9.7 gm/dL (14.0-18.0); MCH 26.3 pg (26.0-34.0); MCHC 31.5 g/dL (28.0-37.0); MCV 83.6 fL (80.0-100.0); RBC 3.7 mil/uL (4.50-6.00); RDW 16.2 % (10.5-14.5)
[2019-11-23 04:26] LABS: CREATININE 1.4 mg/dL (0.7-1.3); POTASSIUM 5.3 mmol/L (3.5-5.1)
--- NOTE | 2019-11-23 06:04 | NUR ---
Pt transferred from OR, s/p intubation for hypoxia, per report, sats had dropped into the 30's, EGD being done to remove food bolus/impaction, when pt aspirated. Pulmonology in to complete bronch, specimen obtained and sent to lab for C&S. Food particles are evident in the ET tubing, OGT placed to LIS for decompression. Pt is 100% V-Paced, rates in the 70's, SBP has been low, upper 0's, MAP has remained over 60 mmHg, propofol titrated to maintain pressures, currently infusing at 42.5 mcg's. Unable to get antibiotics infused, as pt only has one peripheral IV site. Viera catheter was also placed, with immediate return of 250 ml's of clear yellow urine. Care plan is initiated, Fall precautions are in place, the bed is in the low/locked position, and the siderails are up x 4.
--- NOTE | 2019-11-23 09:35 | NUR ---
MARLEE BARROS SON CALLED INQUIRING PT STATUS INFORMATION. UPDATED IN DETAIL REGARDING PT STATUS, ANSWERED QUESTIONS TO HIS SATISFACTION.
--- NOTE | 2019-11-23 10:00 | NUR ---
URINE OUTPUT LOW FOR LAST FOUR HOURS. NOTED URINE LEAKING FROM AROUND HERNÁNDEZ, PT CLEANED. CONTINUING TO MONITOR URINE OUTPUT.
[2019-11-23 10:05] LABS: INR 2.1; PROTIME 21.2 Seconds (9.3-11.4)
--- NOTE | 2019-11-23 10:11 | P ---
[facility] [place] [address] [address] [place] [address] PROCEDURE REPORT Name: ARYA BARROS Room #: [facility] IN M.R.#: [id number] Admission: 11/23/19 Attend Phys: Keenan Maria MD Discharge: Date of : 39 Report #: [id number] THIS REPORT FOR: cc: Selina Krishnan MD, Douglas L. MD Thesing, John A. MD ~ CC: SELINA Maria DATE OF SERVICE: 11/23/2019 PROCEDURE: Upper endoscopy. BRIEF HISTORY: The patient is an 79-year-old male who is actually known to me from evaluation in 08/2018 for melanotic stool. An upper endoscopy at that time did reveal Schatzki ring, which was dilated. The patient presented to [facility] today with complaints of food bolus obstruction in esophagus. He is unable to handle his own secretions and was spitting up into a bag. It is also noted he has been on warfarin and his last dose was yesterday. In addition, recently he has had some dizziness and shortness of breath. Due to the fact that he cannot bring up his own secretions, it was felt we needed to proceed with urgent upper endoscopy to clear his esophagus. PREOPERATIVE DIAGNOSIS: Food bolus obstruction in esophagus. POSTOPERATIVE DIAGNOSES: Food bolus obstruction in esophagus. MEDICATIONS: Deep sedation with propofol per anesthesia. SPECIMEN: Large piece of beef was removed from his esophagus. ESTIMATED BLOOD LOSS: None. PROCEDURE: EGD with removal of food bolus in esophagus. FINDINGS: The patient was taken to the GI suite and potential risks, benefits, complications were discussed. We also discussed the fact that he has been on warfarin and also that he has significant cardiovascular issues and has had some recent symptoms. The patient indicated he understands and desire that we proceed. DESCRIPTION OF PROCEDURE: With the patient in left lateral decubitus position, the Olympus video endoscope was inserted in the cervical esophagus under direct [facility] [address] [place] [address] PROCEDURE REPORT Name: ARYA BARROS Jonathan Room #: [address] [place] [address] [place] [facility].#: [id number] Admission: 11/23/19 Attend Phys: Keenan Maria MD Discharge: Date of : 39 Report #: [id number] vision without difficulty. As the scope was advanced from the proximal and mid esophagus, a very large meat bolus was seen. We engaged to some meat bolus and a Kunz net and pulled it out. When we pulled the scope out, the piece of meat dangling from the Kunz Net was 2.5-3 cm in length. We subsequently reinserted the endoscope and the distal esophagus was filled with cloudy liquid material and pieces of food material. I was very quickly able to advance the scope, I believe into what was likely is hiatus hernia. However, this was filled with food debris. At that point, he developed a drop in his saturations. The endoscope was withdrawn. His oropharynx was suctioned and there was liquidy material and particulate food material. Due to his drop in saturation and concerns for aspiration, the procedure was terminated and he was intubated by the anesthesia service. Initially he had very low sats down into the 30s. Dr. Hunter from the anesthesia service put down the bronchoscope and there was some material in the pulmonary tree. Subsequently, his O2 sat started to rise back up into the 90 range. He maintained a paced, heart rate through the procedure of about 70. He also maintained his blood pressure. DISPOSITION: Unfortunate situation of a likely aspiration, probably from material in his hiatus hernia. He was taken to the Intensive Care Unit to be admitted for further evaluation and treatment. <ELECTRONICALLY SIGNED> By: Willie Villar MD 11/23/19 1011 0025 0052 Willie Villar MD /nt
--- NOTE | 2019-11-23 10:30 | NUR ---
WHEN DR. CHASE ROUNDED, HE WAS UPDATED ON SEEMA, PHARMACIST, HER REQUEST TO INCLUDE FLAGYL FOR TREATMENT OF SPUTUM ANEROBES. DR. CHASE STATED, "I WILL TAKE CARE OF IT".
--- NOTE | 2019-11-23 12:06 | EKG ---
[facility] [place] [address] ELECTROCARDIOGRAM REPORT Name: ARYA BARROS Room #: 250- ADM IN M.R.#: [id number] Admission: 11/23/19 Attend Phys: Keenan Maria MD Discharge: Date of : 39 Report #: [id number] THIS REPORT FOR: cc: Tomas Krishnan MD, Douglas L. MD Park, Jin S. MD ~ THIS REPORT FOR: //name// [facility] ED Test Date: 2019-11-22 Test Time: 20:57:30 Pat Name: ARYA BARROS Department: Room: [facility] Gender: M [employer] Education Bus Driver: [email or web address] : 1940 Requested By: Juan Antonio Foster Order Number: [id number] MD: Nathanael Sethi Measurements Intervals [place] Rate: 70 P: W[place]: QRS: -84 QRSD: 115 T: 105 QT: 394 QTc: 426 Interpretive Statements Afib/flut and V-paced complexes No further analysis attempted due to paced rhythm Compared to ECG 04/06/2015 09:39:33 Right bundle-branch block no longer present T-wave abnormality no longer present Possible ischemia no longer present Electronically Signed On 11-23-2019 12:04:58 CDT by Nathanael Sethi [email or web address] <ELECTRONICALLY SIGNED> By: Nathanael Sethi MD 11/23/19 1204 56 56 Nathanael Sethi MD /EPI
--- NOTE | 2019-11-23 12:28 | HC ---
[facility] [place] [address] CONSULTATION Name: ARYA BARROS Room #: [facility] IN .R.#: [id number] Admission: 11/23/19 Attend Phys: Keenan Maria MD Discharge: Date of : 39 Report #: [id number] THIS REPORT FOR: cc: Tomas Krishnan MD, Douglas L. MD Park, Jin S. MD ~ CC: Tomas Maria DATE OF SERVICE: 11/23/2019 CARDIOLOGY CONSULTATION INDICATION: Respiratory failure. HISTORY OF PRESENT ILLNESS: This is an 79-year-old gentleman with a history of AFib, CAD with stent placement, diabetes mellitus, ICD with history of AV node ablation, cardiomyopathy, GERD, who presents with throat pain and dysphagia. Apparently, he had eaten steak and it was impacted in his throat. He had difficulty swallowing. He was taken to the OR by GI to remove the food bolus from his esophagus. During the procedure, he had respiratory complications, eventually requiring intubation. He has undergone bronchoscopy to remove food particles from his airways. PAST MEDICAL HISTORY: CAD with stent placement to the LAD in 2014. History of chronic atrial fibrillation, status post AV node ablation. Cardiomyopathy, biventricular ICD, EF in the 31% range. History of hypertension, hypercholesterolemia. ALLERGIES: ACETAMINOPHEN, OXYCODONE, PENICILLIN, CODEINE. MEDICATIONS: At home include Toprol-XL 100 mg, amitriptyline, Torsemide 20, warfarin daily 4 mg, tamsulosin, glimepiride, losartan 25 and Pravachol 40 mg. SOCIAL HISTORY: Negative for tobacco use. FAMILY HISTORY: Unobtainable. REVIEW OF SYSTEMS: Unobtainable. PHYSICAL EXAMINATION: VITAL SIGNS: Blood pressure is 106/60, heart rate 70 beats per minute. GENERAL APPEARANCE: This is a well-developed, well-nourished male, intubated and sedated. HEENT: Normocephalic, atraumatic. NECK: Supple. [facility] [address] [place] [address] CONSULTATION Name: ARYA BARROS Room #: [address] [place] [address] [facility].#: [id number] Admission: 11/23/19 Attend Phys: Keenan Maria MD Discharge: Date of : 39 Report #: [id number] LUNGS: Diminished breath sounds at the bases. CARDIAC: Regular rate and rhythm, S1, S2 positive. ABDOMEN: Protuberant, soft, nontender. EXTREMITIES: Trace edema, no cyanosis. IMAGING: ECG reveals a ventricular paced rhythm. LABORATORY VALUES: White count 7.0, hemoglobin is at 9.7, creatinine is 1.4. Troponin is negative at 0.06. ASSESSMENT AND PLAN: 1. Respiratory failure attributed to aspiration. Check cultures, antibiotics for aspiration pneumonia. Wean as tolerable. As per Pulmonary. 2. Coronary artery disease, history of stent placement, review of records showed no episodes of angina prior to admission. Continue on aspirin. 3. Atrial fibrillation, history of AV node ablation. Resume anticoagulation if no further procedures are scheduled. Check INR. 4. ICD, will need interrogation. 5. Cholesterol. Resume statin therapy. <ELECTRONICALLY SIGNED> By: Nathanael Sethi MD 11/23/19 1228 0942 1130 Nathanael Sethi MD /nt
--- NOTE | 2019-11-23 12:45 | NUR ---
CALLED CESAR GUZMAN- DAUGHTER DPOA TO INFORM OF NEED FOR CENTRAL LINE ACCESS TO GIVE IV MEDS AND DRAW BLOOD. DISCUSSED PROS AND CONS. OBTAINED TELEPHONE CONSENT WITH 2 RN'S. UPDATED ON PT STATUS, ANSWERED QUESTIONS TO SATISFACTION. JOSEMANUEL WAHL PRESENT TO PLACE IV ACCESS.
--- NOTE | 2019-11-23 14:53 | NUR ---
VASCULAR ACCESS TEAM CONSULTED FOR CVAD. PT'S LABS,MEDS,HISTORY, ORDER AND CONSENT VERIFIED,. PT HAS DIFFICULTY LAYING FLAT, NEEDS SUCTIONED AND DESATS,SO ATTEMPTED TOM PICC FOR PT SAFETY BUT WITH MINDRAY ULTRASOUND, CXR SHOWED THAT CATH MALPOSITIONED INTO RIJ X2 EVEN AFTER SEVERAL ATTEMPTS TO REPOSITION. 2 FAILED ATTEMPTES IN TOM BASILIC. SO PT REPOSITIONED SUCTIONED SEVERAL TIMES PRIOR TO STARTING IJ. RIJ WAS WIDELY PATENT WITH USG,6FR TL 25CM JACC CATH INSERTED TO 8CM EXTERNAL WITH BRISK BR. STAT CXR ORDERED. PT TOLERATED FAIRLY.
--- NOTE | 2019-11-23 15:17 | NUR ---
CXR CONFIRMED RIJ IN SVC, CVAD RELEASED FOR IMMEDIATE USE PER PROTOCOL TO DARIN ABERNATHY
[2019-11-24] VITALS (27 sets, daily range): BP systolic 86–148; BP diastolic 31–65
[2019-11-24 05:04] LABS: BE(vivo) -3.1 mmol/L (-2 to +3); HCO3 22.3 mmol/L (22.0-26.0); PCO2 41.5 mmHg (35.0-45.0); PO2 66.3 mmHg (80.0-100.0); pH 7.349 (7.360-7.450); sO2 92.2 % (92.0-98.0)
[2019-11-24 06:06] LABS: HEMATOCRIT 22.2 % (42.0-52.0); MCH 27.1 pg (26.0-34.0); MCHC 32.8 g/dL (28.0-37.0); MCV 82.7 fL (80.0-100.0); RBC 2.68 mil/uL (4.50-6.00); RDW 15.5 % (10.5-14.5); WBC 8.7 thou/uL (4.0-11.0)
[2019-11-24 06:13] LABS: HEMOGLOBIN 7.3 gm/dL (14.0-18.0)
[2019-11-24 06:14] LABS: CALCIUM 7.2 mg/dL (8.5-10.1); CREATININE 1.1 mg/dL (0.7-1.3); POTASSIUM 3.4 mmol/L (3.5-5.1)
--- NOTE | 2019-11-24 09:00 | NUR ---
pt daughter called. update given. emotional support given.
--- NOTE | 2019-11-24 14:00 | NUR ---
Dr. Rosa here. update given. Reported Hbg 7.3. states we will watch it for now.
--- NOTE | 2019-11-24 16:27 | NUR ---
pt daughter called. update given. emotional support given.
--- NOTE | 2019-11-24 18:05 | NUR ---
PT LIGHTENED UP THIS AM, FOLLOWS ALL COMMANDS. COLD HAND RESOLVED. NO CPAP TODAY DUE TO SECRETIONS. VSS.
[2019-11-25] VITALS (33 sets, daily range): BP systolic 112–150; BP diastolic 38–65
--- NOTE | 2019-11-25 00:28 | NUR ---
ASSUMED CARE OF PATIENT AT 1900. BP LOW, PROPOFOL TITRATED DOWN, THEN TURNED OFF FOR SEDATION VACATION. OFF FOR APPROXIMATELY 3 HOURS BEFORE PATIENT STARTED RESPONDING TO COMMANDS. ABLE TO NOD HEAD, WIGGLE LEGS AND SQUEEZE HANDS. DENIES PAIN. PROPOFOL GTT RESUMED AT MUCH LOWER RATE. DAUGHTER CALLED, DISCUSSED THIS WITH HER. SHE STATES THAT EVERYTIME HE HAS A PROCEDURE REQUIRING ANESTHESIA IT TAKE HIM A WHILE TO "COME OUT OF IT". UPDATED ON POC. URINE OUTPUT AT 1999 LOOKED BLOODTINGED. AT 2129, NO NEW URINE NOTED IN UROMETER. HERNÁNDEZ IRRIGATED, NO RETURN. BLADDER SCANNED, GREATER THAN 645 SHOWN. BALLOON CATHETER DEFLATED AND CATHETER REPOSITIONED. 700 ML OUTPUT. URINE FLOWING FREELY NOW. O2 TITRATED PER PROTOCOL. PROGRESSING SLOWLY TOWARDS POC GOALS.
[2019-11-25 05:50] LABS: CALCIUM 7.3 mg/dL (8.5-10.1); CREATININE 0.9 mg/dL (0.7-1.3); POTASSIUM 4.1 mmol/L (3.5-5.1)
[2019-11-25 05:58] LABS: ABSOLUTE NEUTROPHILS 7.8 thou/uL (1.4-8.2); BASOPHILS 0.3 % (0.0-2.0); EOSINOPHILS 0.7 % (0.0-3.0); HEMATOCRIT 22.1 % (42.0-52.0); HEMOGLOBIN 7.2 gm/dL (14.0-18.0); LYMPHOCYTES 7.1 % (24.0-44.0); MCH 26.5 pg (26.0-34.0); MCHC 32.3 g/dL (28.0-37.0); MCV 81.8 fL (80.0-100.0); MONOCYTES 7.9 % (1.0-8.0); PLATELET COUNT 185 thou/uL (150-400); RDW 15.9 % (10.5-14.5); WBC 9.3 thou/uL (4.0-11.0)
[2019-11-25 11:13] LABS: HCO3 21.2 mmol/L (22.0-26.0); PCO2 33.8 mmHg (35.0-45.0); PO2 87.2 mmHg (80.0-100.0); pH 7.415 (7.360-7.450); sO2 96.8 % (92.0-98.0)
--- NOTE | 2019-11-25 11:39 | NUR ---
5550-4734- CPAP TRIAL. RR 15-22, HR 70'S VPACED, HYPERTENSION-SBP 140'S-150'S. HE FOLLOWED COMMANDS, HOWEVER DROWSY. POSITIVE COUGH AND GAG. NO APPARENT ISSUES, ABG NOTED. NURSE TALKED WITH DR. HILL ABOUT NIF -10 AND FINDINGS. PER GI PLAN FOR DILATION TOMORROW AND WOULD PREFER TO DO IT ON THE VENTILATOR. THIS WAS RELAYED TO DR. HILL. HE WAS SWITCHED BACK TO A/C PREVIOUS SETTINGS PER DR. HILL. NURSE UPDATED PATIENT ON PLAN OF CARE. WITH HIS GAG AND COUGH, AND HE EXPRESSED THE TUBE HURTS HIS THROAT, PROPOFOL TO BE RESTARTED AT A LOW RATE.
--- NOTE | 2019-11-25 11:52 | NUR ---
If pt remains intubated for 48 more hours, then recommend start enteral nutrition of vital high protein at goal of 65ml/hr
--- NOTE | 2019-11-25 12:47 | 2DMMODE ---
[facility] [address] [place] [address] 2 D/M-MODE ECHOCARDIOGRAM Name: ARYA BARROS Room #: 250-P ADM IN M.R.#: [id number] Admission: 11/23/19 Attend Phys: Keenan Maria MD Discharge: Date of : 39 Report #: [id number] THIS REPORT FOR: cc: Tomas Krishnan MD, Douglas L. MD Lammoglia, Francisco J. MD ~ APPROVED REPORT Study performed: 11/25/2019 11:13:49 EXAM: Comprehensive 2D, Doppler, and color-flow Echocardiogram Patient Location: ICU Room #: 250 Status: routine BSA: 2.13 HR: 70 bpm BP: 112/47 mmHg Other Information Study Quality: Adequate Indications Atrial Fibrillation CAD 2D Dimensions RVDd: 36.86 mm IVSd: 8.42 (7-11mm) LVOT Diam: 20.41 (18-24mm) LVDd: 48.53 mm PWd: 11.21 (7-11mm) Ascending Ao: 32.28 (22-36mm) Aortic Root: 28.35 mm Volumes Left Atrial Volume (Systole) Single Plane 4CH: 68.10 mL Single Plane 2CH: 102.37 mL LA ESV Index: 41.00 mL/m2 Aortic Valve AoV Peak Star.: 2.42 m/s AO Peak Gr.: 23.50 mmHg LVOT Max P.67 mmHg AO Mean Gr.: 11.17 mmHg LVOT Mean P.28 mmHg AO V2 Mean: 1.57 m/s LVOT Max V: 0.92 m/s AO V2 VTI: 44.11 cm LVOT Mean V: 0.50 m/s CHRISTEN (VTI): 1.17 cm2 LVOT V1 VTI: 15.82 cm [facility] [place] [address] 2 D/M-MODE ECHOCARDIOGRAM Name: ARYA BARROS Room #: [address] [place] [address] [place] ..#: [id number] Admission: 11/23/19 Attend Phys: Keenan Maria MD Discharge: Date of : 39 Report #: [id number] CHRISTEN Vmax: 1.24 cm2 SV (LVOT): 51.71 mL Mitral Valve MV Decel. Time: 170.84 ms MV E Max Star.: 1.14 m/s IVRT: 103.81 ms Pulmonary Valve PV Peak Star.: 1.25 m/s PV Peak Gr.: 6.27 mmHg Tricuspid Valve TR Peak Star.: 3.84 m/s RAP Estimate: 15.00 mmHg TR Peak Gr.: 58.89 mmHg PA Pressure: 74.00 mmHg Left Ventricle The left ventricle is normal size. There is normal LV segmental wall motion. There is normal left ventricular wall thickness. The left ventricular systolic function is normal. The left ventricular ejection fraction is within the normal range. LVEF is 60%. This study is not technically sufficient to allow evaluation of the LV diastolic function due to atrial fibrillation. Right Ventricle Mild right ventricular dilatation with preserved systolic function. Device wire noted in right heart. Atria Moderate left atrial dilatation. LA volume index= 41 ml/m^2. Unable to rule out PFO by color doppler in subcostal window. Moderate right atrial dilatation. Aortic Valve Calcified aortic valve leaflets noted with reduced excursion and tricuspid structure No aortic regurgitation is present. There is moderate aortic stenosis. Calculated aortic valve area is 1.14 cm2 with a mean pressure gradient of 11 mmHg. (LVOT diameter 2 cm, LVOT VTI 16 cm, AOV VTI 44 cm) Mitral Valve The mitral valve is normal in structure. Mild to moderate mitral regurgitation. No evidence of mitral valve stenosis. Tricuspid Valve The tricuspid valve is normal in structure. Moderate to severe [facility] [address] [place] [address] 2 D/M-MODE ECHOCARDIOGRAM Name: ARYA BARROS Room #: [address] [place] [address] [place] [facility]#: [id number] Admission: 11/23/19 Attend Phys: Keenan Maria MD Discharge: Date of : 38 Report #: [id number] tricuspid regurgitation. Estimated pulmonary artery pressure of 74 mmHg. Pulmonic Valve Pulmonic valve is not well visualized, normal by Doppler data. Moderate pulmonic regurgitation. Great Vessels The aortic root is normal in size. The ascending aorta is normal in size. IVC is dilated and collapses <50% with inspiration. Pericardium There is no pericardial effusion. <Conclusion> The left ventricle is normal size. LVEF is 60%. Mild right ventricular dilatation with preserved systolic function. Device wire noted in right heart. Moderate left atrial dilatation. LA volume index= 41 ml/m^2. Moderate right atrial dilatation. Calcified aortic valve leaflets noted with reduced excursion and tricuspid structure There is moderate aortic stenosis. Calculated aortic valve area is 1.14 cm2 with a mean pressure gradient of 11 mmHg. (LVOT diameter 2 cm, LVOT VTI 16 cm, AOV VTI 44 cm) The mitral valve is normal in structure. Mild to moderate mitral regurgitation. The tricuspid valve is normal in structure. Moderate to severe tricuspid regurgitation. Estimated pulmonary artery pressure of 74 mmHg. Pulmonic valve is not well visualized, normal by Doppler data. Moderate pulmonic regurgitation. There is no pericardial effusion. <ELECTRONICALLY SIGNED> By: Vin Sanchez MD 11/25/19 1245 1245 1245 Vin Sanchez MD /INF
--- NOTE | 2019-11-25 13:09 | NUR ---
1307- PER GI PHYSICIAN, HOLD HEPARIN STARTING AT MIDNIGHT TONIGHT, INR IN AM, WILL PLAN FOR DILATION TOMORROW.
--- NOTE | 2019-11-25 15:42 | NUR ---
1542- JASWINDER LEGAL ACTIVITY ADJUDICATOR WITH DR. LOVING, TALKED WITH PATIENTS DPOA ABOUT THE DILATION OF THE ESOPHAGUS THEY WOUULD LIKE TO PERFORM TOMORROW WHILE PATIENT INTUBATED. NURSE TALKED WITH PATIENTS DPOA AND CONFIRMED HER AGREEMENT WITH PROCEEDURE.
--- NOTE | 2019-11-25 19:07 | NUR ---
PATIENT PROGRESSING TOWARDS PLAN OF CARE. PATIENT CPAP TRIAL WAS ONE HOUR AND 20 MINUTES. HE FOLLOWS COMMANDS DURING SEDATION VACATION. HE IS HOWEVER, DROWSY WITH SEDATION VACATION AND CPAP TRIAL. WITHOUT SEDATION PATIENTS GAG REFLEX IS STRONG WELL HIS COUGH AND FREQUENTLY ALARMS THE VENT BECAUSE OF THIS. FAMILY UPDATED AND CONSENT SIGNED FOR DILATION TOMORROW. PLAN OF CARE IS TO CONTINUE TO MONITOR PATIENT VITAL SIGNS AND STATUS PROGRESSION.
--- NOTE | 2019-11-25 21:13 | NUR ---
spoke with DPOA (JESUS GUZMAN) AND UPDATED HER ON PATIENT'S CONDITION AND PLAN OF CARE.
[2019-11-26] VITALS (59 sets, daily range): BP systolic 108–164; BP diastolic 26–71
[2019-11-26 05:49] LABS: INR 1.2; PROTIME 12.5 Seconds (9.3-11.4)
[2019-11-26 05:50] LABS: CALCIUM 7.6 mg/dL (8.5-10.1); CREATININE 0.8 mg/dL (0.7-1.3); POTASSIUM 3.8 mmol/L (3.5-5.1)
--- NOTE | 2019-11-26 06:25 | NUR ---
PATIENT ON LIGHT SEDATION, ABLE TO NOD TO YES/NO QUESTIONS. EQUIPMENT INSTALLATION PROFESSIONAL EQUAL BILATERALLY. PACED ON BODY SERVICE TEAM MEMBER. PATIENT IS ON 30% FIO2, O2 SAT REMAINED ABOVE 90%. OG TO LIS, HERNÁNDEZ PATENT WITH GREATER THAN 30ML OUTPUT/HR. NO SIGNIFICANT EVENTS THROUGHOUT THE NIGHT, SEE ASSESSMENT PER CHART. WILL CONTINUE TO MONITOR.
[2019-11-26 07:18] LABS: HEMATOCRIT 21.9 % (42.0-52.0); MCH 26.4 pg (26.0-34.0); MCHC 32.2 g/dL (28.0-37.0); MCV 81.9 fL (80.0-100.0); RBC 2.67 mil/uL (4.50-6.00); WBC 7.1 thou/uL (4.0-11.0)
--- NOTE | 2019-11-26 08:04 | NUR ---
GI LAB STAFF HERE. THEY PERFORMED DILATION OF ESOPHAGUS. REPORT RECEIVED FROM GI PHYSICIAN. NURSE ASKED HIM TO CALL [facility] FOR UPDATE ON FINDINGS. HE EXPRESSED HE WOULD. ORDER FOR PROTONIX RECEIVED.
--- NOTE | 2019-11-26 10:00 | NUR ---
1000- cpap trial starting.
--- NOTE | 2019-11-26 10:45 | NUR ---
1045- nurse updated patients daughter Abiola on the phone. Her questions were answered and nurse held phone up to patients ear so she could say hi. He nodded appropriately and became emotional. Nurse provided reassurance and updated him on the plan for extubation today. Cpap trial is in progress at this time. Nurse to update Dr. Rosa.
[2019-11-26 11:22] LABS: BE(vivo) -3.8 mmol/L (-2 to +3); PO2 93.7 mmHg (80.0-100.0); pH 7.427 (7.360-7.450); sO2 97.4 % (92.0-98.0)
--- NOTE | 2019-11-26 11:30 | NUR ---
1130- PT EXTUBATED BY RT, AFTER CPAP TRIAL, ABG RESULTS NOTED TO DR. HILL BY RT. PATIENT FOLLOWS COMMANDS, IS AWKAE, HEART RATE VPACED 70, BLOOD PRESSURE 10-150'S/90'S, RR 19, O2 SATURATION 98%. HE IS CALM AND COOPERATIVE. NO EVIDENCE OF DISTRESS. HOARSE VOICE AT THIS TIME, FACE SHEILD AT 40% WITH HUMIDITY PROVIDED. NURSE TO CONTINUE TO MONITOR PATIEN STATUS.
--- NOTE | 2019-11-26 17:04 | NUR ---
INITIAL ASSESSMENT: DAT reviewed chart and spoke with attending physician. Pt was admitted from home due to aspiration. Pt had EGD with dilation earlier today. Pt currently in ICU and has been intubted. Pt extubated earlier today. DAT spoke with pt's dtr, Abiola, via phone. Introduced role of SW. Pt is normally alert/orientated x 4. Pt lives at home alone in a duplex. Prior to admission, pt was independent with ADLs. Pt does not use any DME. 4-5 steps to enter the home, and several steps down to the basement. Pt does not need to go to the basement. No hx of HH service or post-acute placement. Pt's PCP is Dr. Tomas Krishnan. Pt's dtr states that pt's neighbors check on pt, as pt does not have local family. Pt's son lives in the [facility], pt's three other children live in [place], [place]. Pt's dtr states that she has concerns with pt managing his own medications. Family is looking at an automatic pill dispenser that will notify family if pt does not take his meds, or if he needs a refill called into his pharmacy ([facility] in [place]). Pt does continue to drive his care and his motorcycle. Pt's family is agreeable with post-acute placement if recommended. Pt's son will be staying with pt after discharge and would be able to provide assistance. DAT discussed HH services with pt's dtr. Therapy evals ordered today. SW is following to assist as needed with discharge planning.
--- NOTE | 2019-11-26 18:24 | NUR ---
PATIENT PROGRESSING TOWARDS PLAN OF CARE. HE REQUESTED HIS FAMILY BRING HIS CELL PHONE AND HIS CONTACT CENTER REPRESENTATIVE. IT HAS NOT ARRIVED YET THUS FAR. CESAR, PATIENTS DAUGHTER, HAS BEEN UPDATED TWICE TODAY. PATIENT WAS ABLE TO TALK TO HER ON THE PHONE. HER QUESTIONS WERE ANSWERED. PATIENT ORIENTED TO SELF AND PARTIAL SITUATION. HE IS CONFUSED TO TIME AND FULLY WHAT HIS SITUATION WAS. HE IS EASILY REDIRECTED. HE IS ABLE TO HELP MOVE HIMSELF IN BED. O2 SATURATIONS HAVE BEEN >92% WITH 2L NASAL CANNULA. HE WAS TRIALED ON ROOM AIR, SECONDARY TO PATIENT PULLING OFF FACE SHIELD, HOWEVER, HIS O2 SATURATIONS WERE 89-90%. NURSE TO CONTINUE TO MONITOR PATIENT STATUS.
--- NOTE | 2019-11-26 21:00 | NUR ---
SPOKE WITH SON (MARLEE) ON THE PHONE. SON WAS AT THE ER ENTRANCE WITH PTS PHONE THAT HE WAS WISHING TO GET TO HIM, HE WAS ALSO REQUESTING TO GET HIS DADS CAR KEYS TO TAKE THEM HOME. SPOKE WITH PT AND GOT HIS PERMISSION TO GIVE HIS CARE KEYS TO SON. AFTER SON HAD LEFT WITH PTS CAR KEYS, MARLEE CALLED BACK SAYING HIS HAD LOST HER BUICK CAR ARENAS FOB. SECUIRY WAS INVOLVED ATTEMPING TO LOCATE THE MISSING FOB.
[2019-11-27] VITALS (25 sets, daily range): BP systolic 114–157; BP diastolic 47–76
[2019-11-27 05:49] LABS: HEMATOCRIT 22.5 % (42.0-52.0); HEMOGLOBIN 7.4 gm/dL (14.0-18.0); MCH 26.7 pg (26.0-34.0); MCV 80.9 fL (80.0-100.0); RBC 2.79 mil/uL (4.50-6.00); WBC 5.4 thou/uL (4.0-11.0)
--- NOTE | 2019-11-27 11:46 | NUR ---
DTR UPDATED BY PHONE.--VW
--- NOTE | 2019-11-27 15:17 | NUR ---
SW reviewed chart and spoke with attending physician. Pt remains in ICU. Therapy evals ordered. DAT discussed case with 5N rehabilitation services manager to see if pt may be a candidate for inpt acute rehab. SW is following to assist as needed with discharge planning.
--- NOTE | 2019-11-27 15:20 | NUR ---
Pt transferred to room 462-P via wheelchair. Alert and oriented. Pt is impulsive and requires reminder not to get up without calling for assistance. Pt assisted to bedside chair in new room and chair alarm activated. Report called to receiving nurse, Corry prior to moving. Corry present in room to assist with placing on monitor and orienting to new room. Personal belongings including bag of shoes and clothes, cell phone, and cell phone financial operations analyst moved with the patient. Speech eval is pending.
--- NOTE | 2019-11-27 16:30 | NUR ---
PT TRANSFERED FROM ICU TO 4W THIS AFTERNOON. 5N ASSESSING FOR POSSIBLE ACUTE REHAB STAY ONCE MEDICALLY STABLE. CM TO FOLLOW INDICATED WITH DC PLANNING.
--- NOTE | 2019-11-27 18:55 | NUR ---
ASSUMED CARE OF PATIENT APPROX 97434. PATIENT TRANSFER FROM ICU. PATIENT HAD SWALLOW STUDY, CLEARED TO EAT REGULAR CHOPPED DIET. PATIENT HAS RIGHT IJ, TRIPPLE LUMEN, FLUIDS RUNNING. PATIENT UNSTEADY ON FEET AND SOA WITH EXERTION. PATIENT ON 2L O2. NO SIGNS OF DISTRESS. WILL CONTINUE TO MONITOR.
[2019-11-28 00:20] VITALS: BP 152/72
[2019-11-28 05:13] VITALS: BP 161/71
--- NOTE | 2019-11-28 08:37 | NUR ---
RECIEVED CARE OF THIS PATIENT AT 1900. PATIENT ALERT AND ORIENTED X4. PATIENT CAN BE IMPULSIVE AND TRY TO GET UP BY SELF. IS EASY TO REDIRECT. DID NOT TRY TO GET UP BY SELF MOST OF THE NIGHT. CALLED OUT APPROPRIATELY. EDGAR PATENT. ACCUCHECK 153, REFUSED INSULIN COVERAGE. IV IN [facility] PATENT WITH FLUIDS INFUSING. SPOKE WITH DAUGHTER AND GAVE UPDATES ON CONDITION. DENIES PAIN. SLEPT LITTLE THIS SHIFT.
[2019-11-28 08:52] LABS: INR 1.3; PROTIME 13.3 Seconds (9.3-11.4)
[2019-11-28 09:16] VITALS: BP 136/74
[2019-11-28 09:22] LABS: HEMATOCRIT 24.3 % (42.0-52.0); MCH 26.5 pg (26.0-34.0); MCHC 32.7 g/dL (28.0-37.0); MCV 81.1 fL (80.0-100.0); WBC 6.2 thou/uL (4.0-11.0)
[2019-11-28 09:27] LABS: CALCIUM 8.2 mg/dL (8.5-10.1); CREATININE 0.8 mg/dL (0.7-1.3); POTASSIUM 3.4 mmol/L (3.5-5.1)
[2019-11-28] MEDS ORDERED: CLEOCIN HCL150 MG PO (13:49)
[2019-11-28] MEDS ORDERED: CULTURELLE KID1 EAC1 PO (13:49)
--- NOTE | 2019-11-28 13:49 | NUR ---
ASSUMED CARE AT 0700. PT ALERT AND ORIENTED. STATES HE WANTS TO GO HOME. VSSA/RA IRREGULAR HEARTBEAT, KNOWN AFIB WITH PACEMAKER ON TELE. EDGAR IN PLACE THIS AM, REMOVED WITHOUT ISSUES BY AIDE. PT URINATED POST REMOVAL WITH NO PROBLEMS. TOLERATING DIET. TRIPLE LUMEN IJ INFUSING WITHOUT ISSUES. PT SBA WITH WALKER. DOING WELL. WILL CONTINUE TO MONITOR. PT REFUSING TO DO ACUTE REHAB, PT TO DC TODAY WITH FAMILIES HELP.
[2019-11-28 14:03] VITALS: BP 136/74
[2019-11-28 14:21] VITALS: BP 136/74
--- NOTE | 2019-11-28 14:22 | NUR ---
PT REFUSED ADMISSION TO 5N ACUTE INPATIENT REHAB. PT WAS REFUSING HH SERVICES. PHYSICIAN INDICATED THAT PT WOULD BENEFIT FROM HH SERVICES. CM INDICATED THEY WOULD BE ORDERED IF MEDICALLY RECOMMENDED AND APPROPRIATE AND THEY CAN BE SET UP. PT HAS RIGHT TO REFUSE THEM UPON DC IN THE COMMUNITY. CM CALLED AND NOTIFIED PT'S DTR AND SON AND THEY WERE RECEPTIVE TO HH SERVICES BEING ORDERED. CM ATTEMPTED PT TO PT IN HIS ROOM TO EXPAIN THE ABOVE BUT THERE WAS NO ANSWER. REFERRAL AND ORDERS SENT TO [facility] . NO OTHER CM INTERVENTION INDICATED. CASE CLOSED.
== END 2019-11-28 14:53 | disposition home health service (06) | DRG 208 ==
LOC: ER 20:31 → ICU 11-23 00:15 → EROBS 11-23 00:21 → ICU 11-23 00:21 → ER 11-23 00:23 → ICU 11-23 00:40 → 4W 11-27 15:42
PROVIDERS: Emergency Medicine; Internal Medicine; Internal Medicine Cardiovascular Disease; Internal Medicine Gastroenterology; Internal Medicine Pulmonary Disease; Nurse Practitioner Adult Health; Nurse Practitioner Family; ADMIT Hospitalist
PROC: 5A1945Z Respiratory Ventilation, 24-96 Consecutive Hours (ICD-10-PCS; principal; 2019-11-23)
PROC: 0BC68ZZ Extirpation of Matter from Right Lower Lobe Bronchus, Via Natural or Artificial Opening Endoscopic (ICD-10-PCS; principal; 2019-11-23)
PROC: 05HY33Z Insertion of Infusion Device into Upper Vein, Percutaneous Approach (ICD-10-PCS; principal; 2019-11-23)
PROC: 0BH17EZ Insertion of Endotracheal Airway into Trachea, Via Natural or Artificial Opening (ICD-10-PCS; principal; 2019-11-23)
PROC: 0DC38ZZ Extirpation of Matter from Lower Esophagus, Via Natural or Artificial Opening Endoscopic (ICD-10-PCS; principal; 2019-11-23)
PROC: 0D738ZZ Dilation of Lower Esophagus, Via Natural or Artificial Opening Endoscopic (ICD-10-PCS; 2019-11-26)
DX: J69.0 Pneumonitis due to inhalation of food and vomit (principal); J96.02 Acute respiratory failure with hypercapnia; J96.01 Acute respiratory failure with hypoxia; I48.20 Chronic atrial fibrillation, unspecified; I42.9 Cardiomyopathy, unspecified; K22.2 Esophageal obstruction; G47.33 Obstructive sleep apnea (adult) (pediatric); E11.9 Type 2 diabetes mellitus without complications; D64.9 Anemia, unspecified; R13.10 Dysphagia, unspecified; K44.9 Diaphragmatic hernia without obstruction or gangrene; I08.1 Rheumatic disorders of both mitral and tricuspid valves; M54.89 Other dorsalgia; I25.10 Atherosclerotic heart disease of native coronary artery without angina pectoris; I49.5 Sick sinus syndrome; I10 Essential (primary) hypertension; E78.00 Pure hypercholesterolemia, unspecified; I48.0 Paroxysmal atrial fibrillation; T18.120A Food in esophagus causing compression of trachea, initial encounter; X58.XXXA Exposure to other specified factors, initial encounter; Y93.89 Activity, other specified; Y92.89 Other specified places as the place of occurrence of the external cause; Y99.8 Other external cause status; Z95.5 Presence of coronary angioplasty implant and graft; Z95.0 Presence of cardiac pacemaker; Z88.6 Allergy status to analgesic agent; Z88.0 Allergy status to penicillin; Z88.8 Allergy status to other drugs, medicaments and biological substances; Z79.4 Long term (current) use of insulin; R07.0 Pain in throat
CPT/HCPCS: 10045; 10078; 62110; 62900

== ENCOUNTER → 2019-12-22 | Outpatient (CLI) | payer OTHER, BC ==
[~2019-12-22] MED LIST changes: +AMITRIPTYLINE H50 M3 PO; +CARVEDILOL25 MG PO; +CLEOCIN HCL150 MG PO; +CULTURELLE KID1 EAC1 PO; +FLOMAX0.4 MG PO; +JANTOVEN4 MG PO; +LANOXIN 0.25M0.25 M1 PO; +METFORMIN PO; +PROSCAR 5MG TABL5 M1 PO; +TORSEMIDE20 MG PO
== END ==
LOC: SJCVC 13:34
PROVIDERS: ATTEND Internal Medicine Cardiovascular Disease
DX: R94.31 Abnormal electrocardiogram [ECG] [EKG] (principal); I25.10 Atherosclerotic heart disease of native coronary artery without angina pectoris; I48.0 Paroxysmal atrial fibrillation; E11.9 Type 2 diabetes mellitus without complications; I25.5 Ischemic cardiomyopathy; I34.0 Nonrheumatic mitral (valve) insufficiency; I10 Essential (primary) hypertension; E78.00 Pure hypercholesterolemia, unspecified; E78.5 Hyperlipidemia, unspecified; Z95.810 Presence of automatic (implantable) cardiac defibrillator; Z79.01 Long term (current) use of anticoagulants; Z79.82 Long term (current) use of aspirin; Z79.899 Other long term (current) drug therapy; Z79.84 Long term (current) use of oral hypoglycemic drugs; Z82.49 Family history of ischemic heart disease and other diseases of the circulatory system

== ENCOUNTER → 2019-12-29 | Outpatient (CLI) | payer OTHER, BC | LOC: SJCVCIMAG 07:12 | PROVIDERS: ATTEND Internal Medicine Cardiovascular Disease | DX: I48.91 Unspecified atrial fibrillation (principal); I42.9 Cardiomyopathy, unspecified; R53.83 Other fatigue; I25.10 Atherosclerotic heart disease of native coronary artery without angina pectoris; I10 Essential (primary) hypertension; E78.5 Hyperlipidemia, unspecified; Z95.0 Presence of cardiac pacemaker; Z79.899 Other long term (current) drug therapy ==

== ENCOUNTER → 2020-02-03 | Outpatient (CLI) | payer OTHER, BC | LOC: LAB 11:13 | PROVIDERS: ATTEND Student in an Organized Health Care Education/Training Program | DX: Z01.812 Encounter for preprocedural laboratory examination (principal); Z11.59 Encounter for screening for other viral diseases ==

== ENCOUNTER → 2020-02-06 | Outpatient (CLI) | payer OTHER, BC ==
[~2020-02-06] VITALS: Ht 175.3 cm; Wt 93.4 kg
[2020-02-06 10:21] LABS: INR 1.1; PROTIME 11.7 Seconds (9.3-11.4)
--- NOTE | 2020-02-10 17:06 | PATH ---
[facility] [address] [place] [address] PATHOLOGY RPT PROCEDURE Name: MICHAEL BARROS Jonathan Room #: REG FRANCIS Silvino.#: [id number] Admission: 02/06/20 Date of : 38 Discharge: Report #: [id number] Path Case #: [id number] L[facility] Accession Number: [id number] . 01 Material submitted: . stomach - BX OF GASTRITIS . 01 Clinical history: . Dysphagia R/O H.pylori . 02 Diagnosis: Gastric mucosa, gastritis, rule out H. pylori, endoscopic biopsy: - Mild chronic inflammation. - Negative for intestinal metaplasia or atrophy. - Negative for Helicobacter pylori (properly controlled immunohistochemical stain performed). (IUV:pit 02/10/2020) QTP 02/10/2020 1441 Local . 02 Electronically signed: . Julieth Calix MD, Pathologist NPI- [id number] . 01 Gross description: . The specimen is received in formalin, labeled "Light, Michael, BX of gastritis" and consists of multiple fragments of reich tissue measuring 1.0 x 0.6 x 0.3 cm in aggregate which are entirely submitted in A1. (SDY; 02/09/2020) SYU/SYU 02/09/2020 1236 Local . 02 Pathologist provided ICD-10: K29.50 . 02 CPT . 930516, I33286 Specimen Comment: A courtesy copy of this report has been sent to [phone], [phone] Specimen Comment: [phone] Specimen Comment: Report sent to / Performed at: [address], [place], [place] [id number] MD Lei Ramirez MD Phone: [phone] Performed at: [address] [id number] MD Julieth Calix MD Phone: [phone]
--- NOTE | 2020-02-12 09:01 | P ---
[facility] [place] [address] PROCEDURE REPORT Name: ARYA BARROS Room #: REG [facility]#: [id number] Admission: 02/06/20 Attend Phys: Willie Villar MD Discharge: Date of : 38 Report #: [id number] THIS REPORT FOR: cc: Selina Krishnan MD, Douglas L. MD Thesing,Willie Danielson MD ~ CC: SELINA Villar DATE OF SERVICE: 02/06/2020 OUTPATIENT UPPER ENDOSCOPY REPORT BRIEF HISTORY: The patient is an 79-year-old male well known to me, who has had a food bolus obstruction in the esophagus earlier this year. During that episode, he did have significant aspiration, requiring hospitalization. He was dilated prior to his discharge, but continued to have solid food dysphagia. PREOPERATIVE DIAGNOSIS: Solid food dysphagia. POSTOPERATIVE DIAGNOSES: 1. Erosive duodenitis. 2. Mild diffuse gastritis. 3. Moderately large hiatus hernia. 4. Schatzki ring. 5. Tortuous distal esophagus secondary to hiatus hernia. MEDICATIONS: Deep sedation with propofol per Anesthesia. SPECIMEN: Biopsies of gastritis, rule out H. pylori. ESTIMATED BLOOD LOSS: 3 mL. PROCEDURE: EGD with biopsy and Savary dilation of esophageal stricture over a wire. FINDINGS: Prior to propofol sedation, procedure of upper endoscopy discussed with the patient as well as potential risks and its complications. He indicates he understands and desires to proceed. DESCRIPTION OF PROCEDURE: With the patient in left lateral decubitus position, the Olympus video endoscope was inserted in the cervical esophagus under direct vision without difficulty. Examination of this organ through its entire length revealed normal esophageal mucosa down to the squamocolumnar junction. The distal esophagus was somewhat tortuous, likely secondary to his large hiatus [facility] [address] [place] [address] PROCEDURE REPORT Name: ARYA BARROS Room #: REG FRANCIS Suresh#: [id number] Admission: 02/06/20 Attend Phys: Willie Villar MD Discharge: Date of : 38 Report #: [id number] hernia. The GE junction was identified. There was a fairly typical ring seen. The edges of the ring were eroded. No ulcers or mass lesions were seen. It had a smooth and benign appearance. The scope was advanced into a moderately large hiatus hernia, was at least 6-8 cm in greatest dimension. There was some fluid in the hernia, which was aspirated away. Otherwise, the mucosa was unremarkable. The scope was advanced into the stomach, was examined on end view as well as retroflexed views. There was diffuse gastritis with primarily erythema, but no ulcers or erosions. Biopsies were obtained. Upon retroflexion, the hiatus hernia was seen. No other abnormalities were identified. The pylorus was unremarkable. Examination of duodenal bulb and immediate postbulbar duodenum revealed a few scattered erosions. No ulcers were seen. Again, biopsies were obtained of the gastric mucosa to evaluate for H. pylori. At that point, the scope was slowly withdrawn and careful circumferential views confirmed the above findings. Subsequently, he was dilated with passage of 50-Czech Tavares dilator. However, the dilator would not pass fully likely due to the hiatus hernia. The dilator was withdrawn. The scope was reintroduced and a guidewire was advanced through the biopsy channel of the scope and into the antrum of the stomach. The scope was withdrawn over the wire and he was subsequently dilated with a 17 mm Savary dilator without difficulty. The dilator passed with ease. CONDITION OF THE PATIENT UPON DISCHARGE: Following the procedure, the patient was drowsy, arousable. He will be discharged home when fully ambulatory. INSTRUCTIONS TO THE PATIENT AND FAMILY AT THE TIME OF DISCHARGE: Findings as noted above. He was dilated as described. He does have a fairly large hiatus hernia. He has significant heart disease and pulmonary hypertension. We will have him use a PPI such as pantoprazole 40 mg daily for his esophagitis and duodenal erosions. If he has evidence of H. pylori, he may benefit from antibiotic treatment. We will have him return to see me in followup in the office in about 4 weeks to review his symptoms and determine whether any further intervention or evaluation such as manometry will be needed. In addition, we will discuss the issue of surgical repair of his hiatus hernia, but hopefully he can be managed medically as he would be high risk for surgery. <ELECTRONICALLY SIGNED> By: Willie Villar MD 02/12/20 0901 1126 1233 Willie Villar MD /nt
== END | disposition home or self-care (01) ==
LOC: GI 08:51
PROVIDERS: Anesthesiology; ATTEND Specialist
DX: R13.12 Dysphagia, oropharyngeal phase (principal); K29.50 Unspecified chronic gastritis without bleeding; K29.80 Duodenitis without bleeding; K29.70 Gastritis, unspecified, without bleeding; K22.2 Esophageal obstruction; K44.9 Diaphragmatic hernia without obstruction or gangrene; K21.9 Gastro-esophageal reflux disease without esophagitis; K22.8 Other specified diseases of esophagus; I10 Essential (primary) hypertension; E11.9 Type 2 diabetes mellitus without complications; I48.91 Unspecified atrial fibrillation; E78.5 Hyperlipidemia, unspecified; Z98.890 Other specified postprocedural states; Z79.899 Other long term (current) drug therapy; Z85.820 Personal history of malignant melanoma of skin; Z79.01 Long term (current) use of anticoagulants; Z88.0 Allergy status to penicillin; Z88.6 Allergy status to analgesic agent
CPT/HCPCS: 62110; 62900

== ENCOUNTER → 2020-03-23 | Outpatient (CLI) | payer OTHER, BC ==
[~2020-03-23] MED LIST changes: +ASA81BEC PO; +B12 ACTIVE1000 MCG PO; +PROTONIX40 M2 PO
== END ==
LOC: SJCVCIMAG 10:51
PROVIDERS: ATTEND Internal Medicine Cardiovascular Disease
DX: Z45.02 Encounter for adjustment and management of automatic implantable cardiac defibrillator (principal); I08.8 Other rheumatic multiple valve diseases; I27.20 Pulmonary hypertension, unspecified; R94.31 Abnormal electrocardiogram [ECG] [EKG]; I25.10 Atherosclerotic heart disease of native coronary artery without angina pectoris; I10 Essential (primary) hypertension; E11.9 Type 2 diabetes mellitus without complications; I25.5 Ischemic cardiomyopathy; I49.5 Sick sinus syndrome; I48.91 Unspecified atrial fibrillation; Z95.810 Presence of automatic (implantable) cardiac defibrillator; Z79.899 Other long term (current) drug therapy

== ENCOUNTER 2020-03-28 15:24 | Inpatient (IN) | payer OTHER, BC ==
[~2020-03-28] VITALS: Ht 177.8 cm; Wt 97.5 kg
[2020-03-28 15:24] VITALS: BP 105/41
[~2020-03-28 15:24] MED LIST changes: -ASA81BEC PO; -B12 ACTIVE1000 MCG PO; -PROTONIX40 M2 PO
[2020-03-28 16:11] LABS: BE(vivo) -0.3 mmol/L (-2 to +3); PO2 VENOUS 54.3 mmHg (35.0-45.0)
[2020-03-28 16:14] LABS: RDW 18.4 % (10.5-14.5)
[2020-03-28 16:16] LABS: HEMATOCRIT 23.2 % (42.0-52.0); HEMOGLOBIN 6.9 gm/dL (14.0-18.0); MCH 19.9 pg (26.0-34.0); MCHC 29.7 g/dL (28.0-37.0); MCV 66.8 fL (80.0-100.0); RBC 3.47 mil/uL (4.50-6.00); WBC 6.1 thou/uL (4.0-11.0)
[2020-03-28 16:29] LABS: APTT 35.5 Seconds (24.5-32.8); PROTIME 20.2 Seconds (9.3-11.4)
[2020-03-28 16:37] LABS: ANION GAP 11 mmol/L (7-16); BUN 18 mg/dL (7-18); CALCIUM 8.1 mg/dL (8.5-10.1); CHLORIDE 100 mmol/L (98-107); CO2 26 mmol/L (21-32); CREATININE 1.3 mg/dL (0.7-1.3); GLUCOSE 413 mg/dL (74-106); POTASSIUM 4.9 mmol/L (3.5-5.1); SODIUM 137 mmol/L (136-145)
[2020-03-28] MEDS ORDERED: PROTONIX40 M2 PO (16:37)
[2020-03-28] MEDS ORDERED: B12 ACTIVE1000 MCG PO (16:38)
[2020-03-28] MEDS ORDERED: HYTRIN 2MG CAPSU2 M1 PO (16:38)
[2020-03-28] MEDS ORDERED: ASA81BEC PO (16:38)
[2020-03-28 16:43] LABS: ALBUMIN 3.4 g/dL (3.4-5.0); LIPASE 69 U/L (73-393); SGOT 19 U/L (15-37); SGPT 17 U/L (30-65); TOTAL BILIRUBIN 0.7 mg/dL (0.2-1.0); TOTAL PROTEIN 7.6 g/dL (6.4-8.2)
[2020-03-28 17:06] LABS: URINE BILIRUBIN NEGATIVE (Negative); URINE BLOOD NEGATIVE (Negative); URINE CLARITY CLEAR; URINE COLOR YELLOW; URINE GLUCOSE-RANDOM* 3+ (Negative); URINE KETONES NEGATIVE (Negative); URINE LEUKOCYTES-REFLEX TRACE (Negative); URINE NITRITE-REFLEX NEGATIVE (Negative); URINE PROTEIN (DIPSTICK) NEGATIVE (Negative); URINE UROBILINOGEN 0.2 E.U./dl (0.2-1.0)
[2020-03-28 17:11] LABS: DIRECT BILIRUBIN 0.1 mg/dL (<0.1-0.2); SALICYLATE < 2.8 mg/dL (2.8-20.0)
[2020-03-28 17:15] LABS: AMP/METHAMP Negative (Negative); BARBITURATES Negative (Negative); BENZODIAZEPINES POSITIVE (Negative); COCAINE Negative (Negative); METHADONE Negative (Negative); OPIATES Negative (Negative); PCP Negative (Negative)
[2020-03-28 17:19] LABS: BACTERIA-REFLEX 1-9 Few /HPF (None Seen); CASTS None Seen /LPF (None Seen); CRYSTALS None Seen /LPF (None Seen); SQUAMOUS None Seen /LPF (0-3); URINE RBC None Seen /HPF (0-2); URINE WBC-REFLEX None Seen /HPF (0-5)
--- NOTE | 2020-03-28 17:26 | NUR ---
CAT SCAN CALLED 25 MIN AGO WHY NOT COMPLETED YET. JENNIE STATED SHE WAS STILL WORKING ANOTHER PT'S RESULTS. CAT SCAN NOW HERE TO STACIE PT
[2020-03-28 18:53] LABS: CHOLESTEROL 115 mg/dL (<200); HDL CHOLESTEROL 25 mg/dL (>40); LDL CHOLESTEROL 41 mg/dL (<100); TC:HDL 4.6 Ratio (Not establshd); TRIGLYCERIDE 246 mg/dL (<150); VLDL 49 mg/dL (<40)
[2020-03-28 19:01] VITALS: BP 116/39
[2020-03-28 19:19] LABS: TSH 1.607 uIU/mL (0.358-3.740)
--- NOTE | 2020-03-28 19:49 | NUR ---
REPORT GIVEN TO JEROMY ABERNATHY. JEROMY REQUESTS TO WAIT TO TRANSPORT HE IS TRYING TO GET A ROOM CLOSER TO NURSES STATION FOR PT SAFETY
[2020-03-28 21:20] VITALS: BP 121/58
--- NOTE | 2020-03-28 22:48 | NUR ---
PATIENT IS A NEW ADMISSION TO THE UNIT THIS SHIFT. PATIENT ARRIVED VIA CART FROM THE ER AND WAS TRANSFERRED TO THE BED WITHOUT INCIDENT. PATIENT IS DISORIENTED TIMES FOUR AND UNABLE TO PARTICIPATE IN HIS ADMISSION. INITIAL VITAL SIGNS STABLE WITH PATIENT KEPT ON OXYGEN FOR PRECAUTION. NURSE HAS SPOKEN TO [facility] REGARDING HER FATHER AND HAS GIVEN FULL UPDATE. NURSE TO FULLY COMPLETE ADMISSION AND INITIATE PLAN OF CARE.
[2020-03-29] VITALS (8 sets, daily range): BP systolic 123–172; BP diastolic 55–85
[2020-03-29 01:09] LABS: HEMOGLOBIN 6.6 gm/dL (14.0-18.0); WBC 6.6 thou/uL (4.0-11.0)
[2020-03-29 01:10] LABS: HEMATOCRIT 22.6 % (42.0-52.0); MCH 19.3 pg (26.0-34.0); MCV 66.4 fL (80.0-100.0); RBC 3.41 mil/uL (4.50-6.00); RDW 18.4 % (10.5-14.5)
--- NOTE | 2020-03-29 04:51 | NUR ---
PATIENT IS STILL CONFUSED BUT NO LONGER DISORIENTED TIMES FOUR. HE IS ALERT TO SELF AND THAT HE IS "IN THE HOSPITAL". BREATHING STABLE ON LOW LEVEL OXYGEN EVIDENCED BY ASSESSMENT AND SPOT OXYGENATION CHECKS. OVERNIGHT CBC SHOWED PATIENTS HEMOGLOBIN DROP TO 6.6. PATIENT HAS NO SIGNS OF BLEEDING AND BLOOD PRESSURES HAVE BEEN STABLE WITH PATIENTS HEART RATE CONTROLLED. ORDERS RECEIVED FROM PROVIDER FOR 0700 H&H. PATIENT KEPT NPO DUE TO NEURO STATUS. FREQUENT INCONTINENCE CHECKS WITH SKIN CARE. PATIENT IS ABLE TO REPOSITION SELF IN BED. CONTINUE PLAN OF CARE.
[2020-03-29 07:25] LABS: HEMOGLOBIN 6.7 gm/dL (14.0-18.0)
[2020-03-29 07:26] LABS: HEMATOCRIT 22.9 % (42.0-52.0)
--- NOTE | 2020-03-29 08:16 | EKG ---
[facility] [address] [address] ELECTROCARDIOGRAM REPORT Name: ARYA BARROS Room #: [facility]- ADM IN M.R.#: [id number] Admission: 03/28/20 Attend Phys: Selwyn House Discharge: Date of : 38 Report #: [id number] THIS REPORT FOR: cc: Tomas Krishnan MD, Douglas L. MD Lundgren, Craig H. MD [facility] ~ THIS REPORT FOR: //name// [facility] ED Test Date: 2020-03-28 Test Time: 15:46:28 Pat Name: ARYA BARROS Department: Room: [facility] Gender: M Outside Industrial Sales Representative: JIMENA : 1940 Requested By: Chai Jeffery Order Number: [id number] MD: Ramón Vu Measurements Intervals [place] Rate: 70 P: 0 NE: 71 QRS: -72 QRSD: 133 T: 86 QT: 450 QTc: 486 Interpretive Statements Ventricular-paced complexes No further analysis attempted due to paced rhythm Compared to ECG 11/22/2019 20:57:30 No significant change was found Electronically Signed On 03-29-2020 8:16:05 CDT by Ramón Vu [email or web address] <ELECTRONICALLY SIGNED> By: Ramón Vu MD, [facility] 03/29/20 0816 1546 1546 Ramón Vu MD, [facility] /EPI
--- NOTE | 2020-03-29 12:20 | EKG ---
[facility] [place] [address] [place] [address] ELECTROCARDIOGRAM REPORT Name: ARYA BARROS Jonathan Room #: 205 ADM IN M.R.#: [id number] Admission: 03/28/20 Attend Phys: Selwyn House Discharge: Date of : 39 Report #: [id number] THIS REPORT FOR: cc: Tomas Krishnan MD, Douglas L. MD Santiago, Patrick MD [facility] ~ THIS REPORT FOR: //name// [facility] ED Test Date: 2020-03-28 Test Time: 15:56:16 Pat Name: ARYA BARROS Department: Room: 205 Gender: M Skein Tier: JIMENA : 1940 Requested By: Selwyn House Order Number: [id number] MD: Faisal Redmond Measurements Intervals [place] Rate: 72 P: -51 DE: 78 QRS: -67 QRSD: 137 T: 105 QT: 449 QTc: 492 Interpretive Statements Ventricular-paced rhythm No further analysis attempted due to paced rhythm Compared to ECG 03/28/2020 15:46:28 No significant changes Electronically Signed On 03-29-2020 12:20:24 CDT by Faisal Redmond [email or web address] <ELECTRONICALLY SIGNED> By: Faisal Redmond MD, [facility] 03/29/20 1220 1556 1556 Faisal Redmond MD, [facility] /EPI
--- NOTE | 2020-03-29 17:12 | NUR ---
INITIAL ASSESSMENT: Received consult. DAT reviewed chart and spoke with nursing. Pt was admitted from home due to encephalopathy/AMS. Pt with accidental overdose of medication. Pt with GI bleed. Pt to have blood transfusion today. DAT met with pt at bedside. Introduced role of SW. Pt is alert/orientated to self and place. Pt states he lives at home alone. Pt has 4-5 stairs to enter his home. Pt states his son lives at the [facility]. His other three children live in [place], [place]. Pt states he has plans to go to [place]. Pt's PCP is Dr. Tomas Krishnan. Pt was at [facility] in October of 2019. Pt was discharged home with Soheila . At that time, pt was accepted by for inpt acute rehab. Will have therapy evaluate pt for discharge needs. DAT spoke with pt's dtr, Abiola, via phone. Abiola and her are driving to today and will be in town tomorrow. Pt normally travels to [place]. Pt's dtr has not been in for about 3 years. She will be seeing the condition of pt's home. Abiola states that pt has a medication dispenser, but will hold on to the pills and not take them. Pt's family would like for him to move to [place]. Abiola is the director of a [employer]. DAT is following to assist as needed with discharge planning.
--- NOTE | 2020-03-29 17:45 | NUR ---
ASSUMED CARE AT 0700. AFEBRILE. NO BM. BEGAN 1 UNIT OF BLOOD TRANSFUSION. MADE CONTACT WITH PATIENT'S DAUGHTER AND SHE AND THE PATIENT WERE UPDATED AND EDUCATED ON THE PATIENT'S CONDITION AND PLAN OF CARE. PATIENT PASSED SPEECH EVAL WITH NO DIFFICULTIES. PATIENT PROGRESSING TOWARDS THE PLAN OF CARE.
[2020-03-29 22:46] LABS: HEMATOCRIT 26.6 % (42.0-52.0); HEMOGLOBIN 8.2 gm/dL (14.0-18.0)
[2020-03-30 04:04] LABS: OBSERVED RETIC COUNT 2.23 % (0.6-2.6)
[2020-03-30 04:38] LABS: ALBUMIN 3.3 g/dL (3.4-5.0); CREATININE 1.1 mg/dL (0.7-1.3); PHOSPHORUS 2.6 mg/dL (2.5-4.9); POTASSIUM 3.6 mmol/L (3.5-5.1)
[2020-03-30 04:40] LABS: % SATURATION 4 % (20-39); IRON 20 ug/dL (65-175); TIBC 462 ug/dL (250-450)
[2020-03-30 04:59] LABS: INR 1.4; PROTIME 14.3 Seconds (9.3-11.4)
[2020-03-30 05:00] VITALS: BP 133/71
[2020-03-30 07:31] LABS: HEMATOCRIT 27.9 % (42.0-52.0); HEMOGLOBIN 8.2 gm/dL (14.0-18.0); MCH 20.5 pg (26.0-34.0); MCHC 29.5 g/dL (28.0-37.0); MCV 69.3 fL (80.0-100.0); RBC 4.03 mil/uL (4.50-6.00); RDW 18.7 % (10.5-14.5); WBC 8.3 thou/uL (4.0-11.0)
--- NOTE | 2020-03-30 07:41 | NUR ---
ASSUMED CARE 1900. PT ALERT AND ORIENTED BUT FORGETFUL WITH INTERMITTENT CONFUSION. VITALS STABLE. RECEIVE 1 UNIT OF BLOOD LAST NIGHT. NO ADVERSE REACTIONS NOTED. WILL CONTINUE TO MONITOR
[2020-03-30 08:15] VITALS: BP 147/63
[2020-03-30 11:43] VITALS: BP 147/53
--- NOTE | 2020-03-30 16:16 | NUR ---
Spoke with patient and dtr. Dtr reports patient to dc home. She will be taking him to [place] soon. Tenative plan dc home with HH care. Referral to [facility] at their request.
--- NOTE | 2020-03-30 16:25 | NUR ---
FAXED REFERRAL TO [facility] HH RECEIVED CONFIRMATION LEFT MSG WITH INTAKE THEY WILL REVIEW.
[2020-03-30 17:02] VITALS: BP 146/77
--- NOTE | 2020-03-30 19:03 | NUR ---
ASSUMED CARE AT CHANGE OF SHIFT. ALERT X4 WITH FORGETFULLNESS. DENIES CHEST PAIN, DENIES SOB. CT OF HEAD COMPLETE. AB RADHA WITH BATHROOM PRIVLEDGES AND WALKING THE HALLS. PT ANXIOUS TO RETURN HOME TO BE WITH DAUGHTER WHO ARRIVED FROM OUT OF TOWN TODAY. VPACED ON TELE. NO BM NOTED NEED STOOL OCCULT.
[2020-03-30 19:38] VITALS: BP 136/67
--- NOTE | 2020-03-31 04:59 | NUR ---
CARE ASSUMED 1899. PT ALERT AND ORIENTED. VITALS STABLE. DENIES PAIN. DENIES CHEST PAIN, NAUSEA OR VOMITING. PT ANTICIPATES TO DC HOME TODAY. INDEPENDENT IN HIS ROOM. NO CONCERNS. NO EVENTS OVERNIGHT. SR ON THE MONITOR. WILL CONTINUE WITH POC.
[2020-03-31 05:40] VITALS: BP 116/71
[2020-03-31 07:40] LABS: HEMATOCRIT 26.4 % (42.0-52.0); HEMOGLOBIN 7.9 gm/dL (14.0-18.0); MCH 20.4 pg (26.0-34.0); MCHC 30.1 g/dL (28.0-37.0); MCV 67.9 fL (80.0-100.0); RBC 3.89 mil/uL (4.50-6.00); RDW 19.4 % (10.5-14.5); WBC 6.4 thou/uL (4.0-11.0)
[2020-03-31 08:00] VITALS: BP 115/58
[2020-03-31 08:02] LABS: CALCIUM 8.1 mg/dL (8.5-10.1); POTASSIUM 3.8 mmol/L (3.5-5.1)
[2020-03-31 09:03] LABS: INR 1.7; PROTIME 17.5 Seconds (9.3-11.4)
[2020-03-31 10:25] VITALS: BP 115/58
[2020-03-31 10:28] VITALS: BP 115/58
--- NOTE | 2020-03-31 10:42 | NUR ---
PT DISCHARGING TODAY TO HOME WITH [facility] HH SPOKE WITH EMMANUEL IN INTAKE AND SHE SAID PT NEEDS TO KNOW THAT HE IS HOMEBOUND FOR HH THEY HAD RECEIVED REFERRAL FROM PT'S CARDIOLOGY PHYSICIAN. SO I FAXED REFERRAL AND DC ORDERS/SUMMARY AND SPOKE WITH EMMANUEL SHE WILL NOTIFY PT TO ARRANGE HH VISITS.
--- NOTE | 2020-03-31 11:19 | NUR ---
ASSESSMENT CHARTED. PT ALERT AND ORIENTED WITH FORGETFULNESS. VSS. DENIED HAVING PAIN OR DISCOMFORT. ORDERS GIVEN TO DISCHARGE PT TO HOME WITH HOME HEALTH. DISCHARGE INSTRUCTIONS GIVEN TO PT AND THE DAUGHTER. THEY BOTH VERBELISED UNDERSTANDING.
[2020-04-01 07:08] LABS: TRICYCLIC (TCA) CONFIRMATION Positive ng/mL (Cutoff=100)
== END 2020-03-31 11:02 | disposition home health service (06) | DRG 917 ==
LOC: ER 15:24 → EROBS 18:56 → 2N 18:56
PROVIDERS: Emergency Medicine; Nurse Practitioner Adult Health; Nurse Practitioner Family; ADMIT Hospitalist; ATTEND Hospitalist
PROC: 30233N1 Transfusion of Nonautologous Red Blood Cells into Peripheral Vein, Percutaneous Approach (ICD-10-PCS; principal; 2020-03-29)
DX: T50.991A Poisoning by other drugs, medicaments and biological substances, accidental (unintentional), initial encounter (principal); E11.00 Type 2 diabetes mellitus with hyperosmolarity without nonketotic hyperglycemic-hyperosmolar coma (NKHHC); G92 Toxic encephalopathy; E87.2 Acidosis; I42.9 Cardiomyopathy, unspecified; I48.91 Unspecified atrial fibrillation; G47.33 Obstructive sleep apnea (adult) (pediatric); I25.10 Atherosclerotic heart disease of native coronary artery without angina pectoris; K21.9 Gastro-esophageal reflux disease without esophagitis; Z96.653 Presence of artificial knee joint, bilateral; M19.90 Unspecified osteoarthritis, unspecified site; E78.5 Hyperlipidemia, unspecified; E11.65 Type 2 diabetes mellitus with hyperglycemia; D50.9 Iron deficiency anemia, unspecified; E78.00 Pure hypercholesterolemia, unspecified; N40.0 Benign prostatic hyperplasia without lower urinary tract symptoms; Z95.0 Presence of cardiac pacemaker; Z95.5 Presence of coronary angioplasty implant and graft; Z88.6 Allergy status to analgesic agent; Z88.0 Allergy status to penicillin; Z88.8 Allergy status to other drugs, medicaments and biological substances; Z79.82 Long term (current) use of aspirin; Z79.899 Other long term (current) drug therapy; Z79.01 Long term (current) use of anticoagulants; Z82.49 Family history of ischemic heart disease and other diseases of the circulatory system; Y92.89 Other specified places as the place of occurrence of the external cause
CPT/HCPCS: 10081

== ENCOUNTER → 2020-05-05 | Outpatient (CLI) | payer OTHER, BC ==
[~2020-05-05] MED LIST changes: +ASA81BEC PO; +B12 ACTIVE1000 MCG PO; +PROTONIX40 M2 PO
== END ==
LOC: SJCVC 13:49
PROVIDERS: ATTEND Internal Medicine Cardiovascular Disease
DX: R94.31 Abnormal electrocardiogram [ECG] [EKG] (principal); I25.2 Old myocardial infarction; I25.10 Atherosclerotic heart disease of native coronary artery without angina pectoris; I10 Essential (primary) hypertension; I48.91 Unspecified atrial fibrillation; D64.9 Anemia, unspecified; I77.9 Disorder of arteries and arterioles, unspecified; I49.5 Sick sinus syndrome; I25.5 Ischemic cardiomyopathy; I34.0 Nonrheumatic mitral (valve) insufficiency; E11.9 Type 2 diabetes mellitus without complications; Z79.899 Other long term (current) drug therapy

== ENCOUNTER → 2020-05-26 | Outpatient (CLI) | payer OTHER, BC | LOC: SJCVC 09:53 | PROVIDERS: ATTEND Internal Medicine Cardiovascular Disease | DX: I48.91 Unspecified atrial fibrillation (principal); R94.31 Abnormal electrocardiogram [ECG] [EKG]; I48.92 Unspecified atrial flutter; E78.00 Pure hypercholesterolemia, unspecified; I25.10 Atherosclerotic heart disease of native coronary artery without angina pectoris; D64.9 Anemia, unspecified; I77.9 Disorder of arteries and arterioles, unspecified; I49.5 Sick sinus syndrome; E11.9 Type 2 diabetes mellitus without complications; I34.0 Nonrheumatic mitral (valve) insufficiency; I25.5 Ischemic cardiomyopathy; Z95.810 Presence of automatic (implantable) cardiac defibrillator; Z79.82 Long term (current) use of aspirin; Z79.899 Other long term (current) drug therapy ==

== ENCOUNTER → 2020-06-09 | Outpatient (CLI) | payer OTHER, BC | LOC: SJCVC 08:46 | PROVIDERS: ATTEND Internal Medicine Cardiovascular Disease | DX: Z51.81 Encounter for therapeutic drug level monitoring (principal); I48.91 Unspecified atrial fibrillation; E11.9 Type 2 diabetes mellitus without complications; G47.33 Obstructive sleep apnea (adult) (pediatric); I10 Essential (primary) hypertension; I42.9 Cardiomyopathy, unspecified; I25.10 Atherosclerotic heart disease of native coronary artery without angina pectoris; Z95.0 Presence of cardiac pacemaker; E78.00 Pure hypercholesterolemia, unspecified; Z79.01 Long term (current) use of anticoagulants; Z79.899 Other long term (current) drug therapy ==

== ENCOUNTER 2020-06-18 09:57 | Emergency (ER) | payer OTHER, BC ==
[~2020-06-18] VITALS: Ht 175.3 cm; Wt 93.0 kg
--- NOTE | ~2020-06-18 | EKG ---
[place] [address] [place] [address] ELECTROCARDIOGRAM REPORT Name: PAPOALMAARYA D Room #: [facility] Suresh#: [id number] Admission: 06/18/20 Attend Phys: Discharge: 06/18/20 Date of : 39 Report #: [id number] [facility] ED Test Date: 2020-06-18 Test Time: 10:24:05 Pat Name: ARYA BARROS Department: Room: Gender: M Narrow Fabric Loom Fixer: SHAYY : 1940 Requested By: Chai Jeffery Order Number: [id number] MD: Measurements Intervals [place] Rate: 185 P: 0 MO: 132 QRS: 266 QRSD: 212 T: QT: 336 QTc: 590 Interpretive Statements Ventricular-paced complexes No further rhythm analysis attempted due to paced rhythm Nonspecific IVCD with LAD No previous ECG available for comparison [email or web address] By: 1024 1024 Adair Borrero MD /EPI
[2020-06-18 10:46] LABS: HEMATOCRIT 30.6 % (42.0-52.0); HEMOGLOBIN 9.6 gm/dL (14.0-18.0); MCH 21.4 pg (26.0-34.0); MCHC 31.4 g/dL (28.0-37.0); MCV 68.4 fL (80.0-100.0); RBC 4.48 mil/uL (4.50-6.00); RDW 21.4 % (10.5-14.5); WBC 4.8 thou/uL (4.0-11.0)
[2020-06-18 10:54] LABS: CALCIUM 8.9 mg/dL (8.5-10.1); CREATININE 1.4 mg/dL (0.7-1.3); POTASSIUM 3.9 mmol/L (3.5-5.1)
[2020-06-18 10:59] LABS: INR 2.2; PROTIME 22.3 Seconds (9.3-11.4)
[2020-06-18] MEDS ORDERED: ZPAK PO (11:15)
[2020-06-18 11:38] VITALS: BP 135/79
== END 2020-06-18 11:51 | disposition home or self-care (01) ==
LOC: ER 09:57
PROVIDERS: Emergency Medicine
DX: U07.1 COVID-19 (principal); R42 Dizziness and giddiness; I48.91 Unspecified atrial fibrillation; I10 Essential (primary) hypertension; E78.5 Hyperlipidemia, unspecified; E11.9 Type 2 diabetes mellitus without complications; I25.10 Atherosclerotic heart disease of native coronary artery without angina pectoris; K21.9 Gastro-esophageal reflux disease without esophagitis; Z95.5 Presence of coronary angioplasty implant and graft; Z96.653 Presence of artificial knee joint, bilateral; Z79.899 Other long term (current) drug therapy; Z79.01 Long term (current) use of anticoagulants; Z88.6 Allergy status to analgesic agent; Z88.5 Allergy status to narcotic agent; Z88.0 Allergy status to penicillin

== ENCOUNTER 2020-06-18 18:10 | Emergency (ER) | payer OTHER, BC ==
[~2020-06-18] VITALS: Ht 175.3 cm; Wt 93.0 kg
[~2020-06-18 18:10] MED LIST changes: +ZPAK PO
[2020-06-18 21:00] VITALS: BP 118/62
== END 2020-06-18 21:30 | disposition home or self-care (01) ==
LOC: ER 18:10
DX: U07.1 COVID-19 (principal); R42 Dizziness and giddiness; I48.91 Unspecified atrial fibrillation; E11.9 Type 2 diabetes mellitus without complications; I25.10 Atherosclerotic heart disease of native coronary artery without angina pectoris; K21.9 Gastro-esophageal reflux disease without esophagitis; Z96.653 Presence of artificial knee joint, bilateral; Z79.2 Long term (current) use of antibiotics; Z79.82 Long term (current) use of aspirin; Z79.899 Other long term (current) drug therapy; Z88.6 Allergy status to analgesic agent; Z88.5 Allergy status to narcotic agent; Z88.0 Allergy status to penicillin

== ENCOUNTER → 2020-07-30 | Outpatient (CLI) | payer OTHER, BC | LOC: CAT | PROVIDERS: ATTEND Pediatrics | DX: I51.7 Cardiomegaly (principal); G47.33 Obstructive sleep apnea (adult) (pediatric); R06.00 Dyspnea, unspecified; I25.10 Atherosclerotic heart disease of native coronary artery without angina pectoris; K44.9 Diaphragmatic hernia without obstruction or gangrene; J98.4 Other disorders of lung ==

== ENCOUNTER → 2020-08-31 | Outpatient (CLI) | payer OTHER, BC | LOC: SJCVC 09:22 | PROVIDERS: ATTEND Internal Medicine Cardiovascular Disease | DX: R94.31 Abnormal electrocardiogram [ECG] [EKG] (principal); I48.91 Unspecified atrial fibrillation; I25.10 Atherosclerotic heart disease of native coronary artery without angina pectoris; I49.5 Sick sinus syndrome; I25.5 Ischemic cardiomyopathy; I48.21 Permanent atrial fibrillation; E11.9 Type 2 diabetes mellitus without complications; E78.5 Hyperlipidemia, unspecified; G47.33 Obstructive sleep apnea (adult) (pediatric); E78.00 Pure hypercholesterolemia, unspecified; Z79.899 Other long term (current) drug therapy; Z79.82 Long term (current) use of aspirin; Z79.84 Long term (current) use of oral hypoglycemic drugs; Z95.810 Presence of automatic (implantable) cardiac defibrillator; Z88.5 Allergy status to narcotic agent; Z88.0 Allergy status to penicillin ==

== ENCOUNTER 2021-01-25 00:57 | Inpatient (IN) | payer OTHER, BC ==
[~2021-01-25] VITALS: Ht 175.3 cm; Wt 95.3 kg
[2021-01-25 01:09] VITALS: BP 157/70
[2021-01-25 01:32] LABS: ABSOLUTE NEUTROPHILS 4.9 thou/uL (1.4-8.2); BASOPHILS 0.7 % (0.0-2.0); EOSINOPHILS 2.5 % (0.0-3.0); HEMATOCRIT 28.1 % (42.0-52.0); HEMOGLOBIN 8.7 gm/dL (14.0-18.0); MCH 22.4 pg (26.0-34.0); MCHC 30.8 g/dL (28.0-37.0); MCV 72.8 fL (80.0-100.0); MONOCYTES 10.2 % (1.0-8.0); PLATELET COUNT 195 thou/uL (150-400); POLYS 72.6 % (36.0-66.0); RBC 3.86 mil/uL (4.50-6.00); RDW 19.5 % (10.5-14.5); WBC 6.7 thou/uL (4.0-11.0)
[2021-01-25 01:36] LABS: ANION GAP 10 mmol/L (7-16); BUN 19 mg/dL (7-18); CALCIUM 8.1 mg/dL (8.5-10.1); CHLORIDE 107 mmol/L (98-107); CO2 26 mmol/L (21-32); CREATININE 1.2 mg/dL (0.7-1.3); GLUCOSE 187 mg/dL (74-106); POTASSIUM 3.9 mmol/L (3.5-5.1); SODIUM 143 mmol/L (136-145)
[2021-01-25 01:46] LABS: ALBUMIN 3.5 g/dL (3.4-5.0); APTT 32.2 Seconds (24.5-32.8); INR 1.64; LIPASE 76 U/L (73-393); PROTIME 17.5 Seconds (10.5-12.1); SGOT 16 U/L (15-37); SGPT 21 U/L (16-63); TROPONIN-I <0.06 ng/mL (<0.06)
[2021-01-25 02:19] LABS: ANISOCYTOSIS 2+; HYPOCHROMASIA 2+; MICROCYTES 1+; POLYCHROMASIA 1+
[2021-01-25 05:58] LABS: URINE BILIRUBIN NEGATIVE (Negative); URINE BLOOD TRACE (Negative); URINE CLARITY CLEAR; URINE COLOR YELLOW; URINE GLUCOSE-RANDOM* 2+ (Negative); URINE KETONES 1+ (Negative); URINE LEUKOCYTES-REFLEX NEGATIVE (Negative); URINE NITRITE-REFLEX NEGATIVE (Negative); URINE PROTEIN (DIPSTICK) NEGATIVE (Negative); URINE SPECIFIC GRAVITY 1.015 (1.005-1.035)
--- NOTE | 2021-01-25 07:17 | EKG ---
[address] [place] [address] ELECTROCARDIOGRAM REPORT Name: ARYA BARROS Room #: 170- ADM IN M.R.#: [id number] Admission: 01/25/21 Attend Phys: Juan C Arevalo MD Discharge: Date of : 38 Report #: [id number] [facility] ED Test Date: 2021-01-25 Test Time: 01:11:26 Pat Name: ARYA BARROS Department: Room: [facility] Gender: M [employer] Scout: lolly : 1940 Requested By: Jose D Peterson Order Number: [id number] MD: Faisal Redmond Measurements Intervals [place] Rate: 70 P: ME: QRS: 265 QRSD: 133 T: 96 QT: 418 QTc: 452 Interpretive Statements Afib/flutter and ventricular-paced rhythm No further analysis attempted due to paced rhythm Compared to ECG 06/18/2020 10:24:05 No significant changes Electronically Signed On 01-25-2021 7:16:52 CDT by Fasial Redmond [email or web address] <ELECTRONICALLY SIGNED> By: Faisal Redmond MD, [facility] 01/25/21 0716 0 0 Faisal Redmond MD, [facility] /EPI
[2021-01-25 09:41] LABS: FOLIC ACID 16.1 ng/mL (8.6-58.9)
--- NOTE | 2021-01-25 16:04 | 2DMMODE ---
[facility] [place] [address] 2 D/M-MODE ECHOCARDIOGRAM Name: ARYA BARROS Room #: 170-12 ADM IN M.R.#: [id number] Admission: 01/25/21 Attend Phys: Juan C Arevlao MD Discharge: Date of : 38 Report #: [id number] THIS REPORT FOR: cc: Keenan Perez MD, Kirk D. MD Lammoglia, Francisco J. MD ~ APPROVED REPORT Study performed: 01/25/2021 14:49:09 EXAM: Comprehensive 2D, Doppler, and color-flow Echocardiogram Patient Location: ER Room #: 12 Status: routine BSA: 2.11 HR: 74 bpm BP: 143/70 mmHg Rhythm: Atrial Fibrillation Other Information Study Quality: Good Indications ICD: Acute NV Diabetes Atrial Fibrillation Cardiomyopathy Hypertension/HDD 2D Dimensions RVDd: 41.84 mm IVSd: 11.44 (7-11mm) LVOT Diam: 23.38 (18-24mm) LVDd: 45.82 mm PWd: 7.66 (7-11mm) Ascending Ao: 29.43 (22-36mm) LVDs: 36.98 (25-40mm) Left Atrium: 54.07 (27-40mm) Aortic Root: 31.49 mm IVC: 24.00 mm Volumes Left Atrial Volume (Systole) Single Plane 4CH: 108.28 mL Single Plane 2CH: 71.91 mL LA ESV Index: 48.00 mL/m2 [facility] [address] [address] 2 D/M-MODE ECHOCARDIOGRAM Name: ARYA BARROS Room #: [address] [place] [address] IN .R.#: [id number] Admission: 01/25/21 Attend Phys: Juan C Arevalo, Discharge: Date of : 38 Report #: [id number] Aortic Valve AoV Peak Star.: 1.76 m/s AO Peak Gr.: 12.39 mmHg LVOT Max P.65 mmHg LVOT Max V: 1.08 m/s CHRISTEN Vmax: 2.63 cm2 Pulmonary Valve PV Peak Star.: 0.97 m/s PV Peak Gr.: 3.80 mmHg Tricuspid Valve TR Peak Star.: 3.01 m/s TR Peak Gr.: 36.40 mmHg PA Pressure: 46.00 mmHg Left Ventricle The left ventricle is normal size. There is normal left ventricular wall thickness. The left ventricular systolic function is normal. The left ventricular ejection fraction is within the normal range. LVEF is 50%. This study is not technically sufficient to allow evaluation of the LV diastolic function due to atrial fibrillation. Right Ventricle Right ventricle is at the upper limits of normal. The right ventricular systolic function is normal. Device lead is present in the right ventricle. Atria Left atrium is dilated. Right atrium is dilated. Device lead is present in the right atrium. Aortic Valve The aortic valve is normal in structure. No aortic regurgitation is present. There is no aortic valvular stenosis. Mitral Valve The mitral valve is normal in structure. Mild mitral regurgitation. No evidence of mitral valve stenosis. Tricuspid Valve The tricuspid valve is normal in structure. There is mild tricuspid regurgitation. Estimated PAP 46 mmHg. There is moderate pulmonary hypertension. Pulmonic Valve The pulmonary valve is normal in structure. There is no pulmonic valvular regurgitation. [facility] [address] [place] [address] 2 D/M-MODE ECHOCARDIOGRAM Name: ARYA BARROS Room #: 170-12 [facility] IN M.R.#: [id number] Admission: 01/25/21 Attend Phys: Juan C Arevalo, Discharge: Date of : 38 Report #: [id number] Great Vessels The aortic root is normal in size. IVC is dilated and collapses >50% with inspiration. Pericardium There is no pericardial effusion. <Conclusion> The left ventricle is normal size. The left ventricle is normal size. There is normal left ventricular wall thickness. LVEF is 50%. Right ventricle is at the upper limits of normal. Device lead is present in the right ventricle. Left atrium is dilated. Right atrium is dilated. Device lead is present in the right atrium. The aortic valve is normal in structure. The mitral valve is normal in structure. Mild mitral regurgitation. The tricuspid valve is normal in structure. There is mild tricuspid regurgitation. Estimated PAP 46 mmHg. There is moderate pulmonary hypertension. The pulmonary valve is normal in structure. The aortic root is normal in size. There is no pericardial effusion. <ELECTRONICALLY SIGNED> By: Vin Sanchez MD 01/25/21 1604 [id number] Vin Sanchez MD /INF
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
[2021-01-25 18:14] VITALS: BP 166/87
[2021-01-25 18:22] VITALS: BP 163/84
[2021-01-25 18:46] VITALS: BP 113/80
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
[2021-01-26 05:49] LABS: INR 1.66; PROTIME 17.7 Seconds (10.5-12.1)
[2021-01-26 08:30] VITALS: BP 149/80
[2021-01-26 08:37] LABS: HEMATOCRIT 28.1 % (42.0-52.0); HEMOGLOBIN 8.8 gm/dL (14.0-18.0); MCH 22.7 pg (26.0-34.0); MCHC 31.3 g/dL (28.0-37.0); MCV 72.5 fL (80.0-100.0); RBC 3.88 mil/uL (4.50-6.00); WBC 5.2 thou/uL (4.0-11.0)
[2021-01-26 09:13] LABS: ALBUMIN 3.2 g/dL (3.4-5.0); CALCIUM 8.2 mg/dL (8.5-10.1); CREATININE 1.1 mg/dL (0.7-1.3); MAGNESIUM 1.7 mg/dL (1.8-2.4); PHOSPHORUS 3.3 mg/dL (2.6-4.7)
[2021-01-26 11:20] VITALS: BP 154/91
[2021-01-26 11:50] VITALS: BP 158/91
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
[2021-01-26 16:45] VITALS: BP 146/69
[2021-01-26 19:16] VITALS: BP 116/44
--- NOTE | 2021-01-26 19:56 | NUR ---
Assumed pt care this am, pt was taken down for a scan. AM meds not given since pt was npo and off the unit. Diet was resumed at dinner as per MD. POC followed with no signs or verbalizations of distress noted. Endorsed to the night nurse.
[2021-01-27 02:34] LABS: HEMATOCRIT 29.5 % (42.0-52.0); HEMOGLOBIN 9.2 gm/dL (14.0-18.0); MCH 22.7 pg (26.0-34.0); MCHC 31.3 g/dL (28.0-37.0); MCV 72.5 fL (80.0-100.0); RBC 4.07 mil/uL (4.50-6.00); RDW 19.3 % (10.5-14.5); WBC 5.9 thou/uL (4.0-11.0)
[2021-01-27 02:56] LABS: INR 1.41; PROTIME 15.1 Seconds (10.5-12.1)
[2021-01-27 03:01] LABS: CALCIUM 8.4 mg/dL (8.5-10.1); POTASSIUM 3.7 mmol/L (3.5-5.1)
--- NOTE | 2021-01-27 07:18 | NUR ---
Assumed pt care at 1900. A/OX4,hard of hearing. VSS. C/o left rib cage with movement, medicated with [place] with relief reported. Up with SBA.Voiding per urinal at [facility]. V-paced on telemetry. Resting quietly w/o any distress,will continue to monitor pt.
[2021-01-27 08:00] VITALS: BP 154/92
[2021-01-27 14:36] VITALS: BP 154/92
--- NOTE | 2021-01-27 15:17 | NUR ---
ASSUMED PT CARE THIS AM. PT A&OX4 AND ABLE TO MAKE NEEDS KNOWN. PATIENT REPORTS NO PAIN, NUMBNESS, OR TINGLING. PATIENT HARD OF HEARING. IV PATENT, SALINE LOCKED. PATIENT REMAINS ON TELEMETRY. PATIENT ON ROOM AIR. PATIENT REMAINS CONTINENT. IV AND TELEMETRY REMOVED FOR DISCHARGE. PATIENT OFF UNIT AT 1510, BELONGINGS SENT WITH PATIENT.
== END 2021-01-27 15:13 | disposition home or self-care (01) | DRG 205 ==
LOC: ER 00:57 → EROBS 04:49 → 4W 18:29
PROVIDERS: Emergency Medicine; Hospitalist; Nurse Practitioner; Nurse Practitioner Adult Health; Surgery; ADMIT Internal Medicine; ATTEND Internal Medicine
DX: S22.32XA Fracture of one rib, left side, initial encounter for closed fracture (principal); J96.00 Acute respiratory failure, unspecified whether with hypoxia or hypercapnia; I42.9 Cardiomyopathy, unspecified; G47.33 Obstructive sleep apnea (adult) (pediatric); I25.10 Atherosclerotic heart disease of native coronary artery without angina pectoris; Z96.653 Presence of artificial knee joint, bilateral; S09.90XA Unspecified injury of head, initial encounter; E11.9 Type 2 diabetes mellitus without complications; S39.91XA Unspecified injury of abdomen, initial encounter; I11.0 Hypertensive heart disease with heart failure; E78.5 Hyperlipidemia, unspecified; E66.9 Obesity, unspecified; I48.91 Unspecified atrial fibrillation; I50.9 Heart failure, unspecified; Z20.822 Contact with and (suspected) exposure to COVID-19; D63.8 Anemia in other chronic diseases classified elsewhere; Z60.2 Problems related to living alone; N40.0 Benign prostatic hyperplasia without lower urinary tract symptoms; E78.00 Pure hypercholesterolemia, unspecified; R53.81 Other malaise; E53.8 Deficiency of other specified B group vitamins; Z66 Do not resuscitate; Z95.5 Presence of coronary angioplasty implant and graft; Z88.0 Allergy status to penicillin; Z88.6 Allergy status to analgesic agent; Z88.8 Allergy status to other drugs, medicaments and biological substances; Z68.31 Body mass index [BMI] 31.0-31.9, adult; Z79.82 Long term (current) use of aspirin; Z79.899 Other long term (current) drug therapy; Z95.810 Presence of automatic (implantable) cardiac defibrillator; V89.2XXA Person injured in unspecified motor-vehicle accident, traffic, initial encounter; Y93.89 Activity, other specified; Y92.89 Other specified places as the place of occurrence of the external cause; Y99.8 Other external cause status
CPT/HCPCS: 10045

== ENCOUNTER → 2021-02-24 | Outpatient (CLI) | payer OTHER, BC | LOC: SJCVC 11:19 | PROVIDERS: ATTEND Internal Medicine Cardiovascular Disease | DX: I25.10 Atherosclerotic heart disease of native coronary artery without angina pectoris (principal); E78.00 Pure hypercholesterolemia, unspecified; I48.91 Unspecified atrial fibrillation; I77.9 Disorder of arteries and arterioles, unspecified; I27.20 Pulmonary hypertension, unspecified; I34.0 Nonrheumatic mitral (valve) insufficiency; I35.0 Nonrheumatic aortic (valve) stenosis; I42.9 Cardiomyopathy, unspecified; I10 Essential (primary) hypertension; G47.33 Obstructive sleep apnea (adult) (pediatric); I65.29 Occlusion and stenosis of unspecified carotid artery; E11.9 Type 2 diabetes mellitus without complications; E78.5 Hyperlipidemia, unspecified; K44.9 Diaphragmatic hernia without obstruction or gangrene; M19.90 Unspecified osteoarthritis, unspecified site; I48.0 Paroxysmal atrial fibrillation; I49.5 Sick sinus syndrome; Z79.01 Long term (current) use of anticoagulants; Z79.82 Long term (current) use of aspirin; Z79.84 Long term (current) use of oral hypoglycemic drugs; Z79.899 Other long term (current) drug therapy; Z95.810 Presence of automatic (implantable) cardiac defibrillator; Z88.0 Allergy status to penicillin; Z88.5 Allergy status to narcotic agent; Z82.49 Family history of ischemic heart disease and other diseases of the circulatory system ==

== ENCOUNTER → 2021-03-03 | Outpatient (CLI) | payer OTHER, BC | LOC: SJCVC 10:59 | PROVIDERS: ATTEND Internal Medicine Cardiovascular Disease | DX: Z51.81 Encounter for therapeutic drug level monitoring (principal); Z79.01 Long term (current) use of anticoagulants ==

== ENCOUNTER → 2021-04-27 | Outpatient (CLI) | payer OTHER, BC | LOC: SJCVC 14:46 | PROVIDERS: ATTEND Internal Medicine Cardiovascular Disease | DX: Z51.81 Encounter for therapeutic drug level monitoring (principal); I25.10 Atherosclerotic heart disease of native coronary artery without angina pectoris; E78.00 Pure hypercholesterolemia, unspecified; I10 Essential (primary) hypertension; E11.9 Type 2 diabetes mellitus without complications; G47.33 Obstructive sleep apnea (adult) (pediatric); Z79.82 Long term (current) use of aspirin; Z79.84 Long term (current) use of oral hypoglycemic drugs; Z79.899 Other long term (current) drug therapy; Z82.49 Family history of ischemic heart disease and other diseases of the circulatory system; Z88.8 Allergy status to other drugs, medicaments and biological substances ==